=== PATIENT | male | born 1960 | race Caucasian/White ===

== ENCOUNTER 2019-07-20 18:07 | Inpatient (IN) | payer BC, SELFPAY ==
--- NOTE | ~2019-07-20 | XR_ITS ---
XR chest 2V DATE: 07/23/2019 07:52 INDICATION: Fever TECHNIQUE: 2 views COMPARISON: None FINDINGS: Normal heart size. Aortic arch calcification. No hilar or mediastinal enlargement. No pulmo nary infiltrate or consolidation, pleural effusion or pulmonary vascular congestion or pneumothorax. IMPRESSION: No active cardiopulmonary disease Reviewed, dictated and finalized at location A.
--- NOTE | ~2019-07-20 | XR_ITS ---
EXAMINATION: XR finger 2nd RT min 2V DATE: 07/25/2019 12:47 INDICATION: Swelling and open wound to the distal right second digit TECHNIQUE: Dorsal palmar, lateral and 2 oblique views of the right second digit were obtained COMPARISON: None FINDINGS: Again seen is diffuse soft tissue swelling about the right second digit. Bone alignment is normal. No fracture. No cortical erosions or periosteal reaction to suggest osteomyelitis. Polyarticular osteoa rthritis, moderate severity at the third metacarpophalangeal and second and third distal interphalang eal joints and mild at the first and second metacarpophalangeal, first interphalangeal and second and third proximal interphalangeal joints. IMPRESSION: 1. Prominent diffuse soft tissue swelling about the right second digit with no findings to suggest os teomyelitis. 2. Mild to moderate polyarticular osteoarthritis. Reviewed, dictated and finalized at location A. IMPRESSION: 1. Prominent diffuse soft tissue swelling about the right second digit with no findings to suggest osteomyelitis. 2. Mild to moderate polyarticular osteoarthritis.
--- NOTE | ~2019-07-20 | XR_ITS ---
EXAMINATION: XR finger 2nd RT min 2V EXAM DATE: 07/20/2019 19:48 INDICATION: Right second finger cat bite, pain, swelling. TECHNIQUE: Right second finger frontal, lateral and oblique projections obtained and reviewed. The re is no prior study for comparison. FINDINGS: There are no acute right finger fractures or dislocations identified. There is no subcutan eous gas. There is severe soft tissue swelling of the digit. There are no radiopaque foreign bodies . There are no bony erosions identified. IMPRESSION: 1. XR finger 2nd RT min 2V exam without acute osseous findings. 2. Soft tissue swelling. Reviewed, dictated and finalized at location A.
[2019-07-20 18:09] VITALS: BP 159/71; PULSE 87; RESP 15; TEMP 36.1; O2SAT 98
[2019-07-20 18:39] LABS: Basophils Percent Auto 0.2 % (0.2-1.2); Eosinophils Percent Auto 0.4 % (0-4.4); Hematocrit 39.2 % (42.0-52.0); Hemoglobin 13.3 g/dL (14.0-18.0); Immature Granulocyte Absolute 0.02 K/mm3 (0.00-0.031); Immature Granulocyte Percent A 0.2 % (0-0.5); Lymphocytes Percent Auto 16.3 % (18.3-44.2); Mean Corpuscular HGB Conc 33.9 g/dl (32-36); Mean Corpuscular Hemoglobin 30.6 pg (26-34); Mean Corpuscular Volume 90.3 fl (80-100); Mean Platelet Volume 9.1 fl (7.4-10.4); Monocytes Absolute Auto 0.9 K/mm3 (0.1-0.6); Monocytes Percent Auto 9.2 % (2.6-8.5); Neutrophils Absolute Auto 7.2 K/mm3 (1.3-6.7); Neutrophils Percent Auto 73.7 % (45.5-73.1); Platelet Count Result 320 k/mm3 (150-375); Red Blood Count 4.34 M/mm3 (4.6-6.20); Red Cell Distribution Width 13.2 % (11.5-14.5); White Blood Count 9.8 K/mm3 (4.5-10.0)
[2019-07-20 18:51] LABS: Alanine Aminotransferase 39 U/L (4-50); Albumin Level 4.7 g/dL (3.5-5.1); Alkaline Phosphatase 72 U/L (38-126); Aspartate Amino Transferase 26 U/L (17-59); Bilirubin,Total 0.3 mg/dL (0.2-1.3); Blood Urea Nitrogen 14 mg/dL (9-20); Calcium 9.2 mg/dL (8.4-10.2); Carbon Dioxide 24 mmol/L (22-30); Chloride 104 mmol/L (98-107); Estimated CRCL calculation 84 ml/min; Estimated Glomerular Filt Rate > 60; Glucose 117 mg/dL (75-110); Potassium 3.9 mmol/L (3.4-5.0); Sodium 137 mmol/L (137-145)
[2019-07-20 19:52] LABS: CRP 2.7 mg/dL (<1.0)
[2019-07-20 20:08] LABS: Erythrocyte Sedimentation Rate 47 mm/hr (0-20)
--- NOTE | 2019-07-20 21:32 | ED.WOUNDLAC ---
HPI - Wound/Laceration General Chief Complaint: Wound/Laceration <MAGGIE Mac Last Filed: 07/20/19 22:17> Stated Complaint: cat bite <MAGGIE Mac Last Filed: 07/20/19 22:17> Time Seen by Provider: 07/20/19 19:19 <MAGGIE Mac Last Filed: 07/20/19 22:17> Source: patient <MAGGIE Mac Last Filed: 07/20/19 22:17> Mode of arrival: ambulatory <MAGGIE Mac Last Filed: 07/20/19 22:17> Limitations: no limitations <MAGGIE Mac Last Filed: 07/20/19 22:17> History of Present Illness HPI narrative: This is a 58 year old male that presents to the ER for cat bite to right 2nd finger sustained 3 days ago. Reports his cat was at the library circulation department chief and he was holding the cat for the doctor. Reports the cat bit him. Reports since he has had increasing swelling and redness to the finger. Also reports drainage from the area. Denies fever. <MAGGIE Mac Last Filed: 07/20/19 22:17> Related Data Home Medications: Home Medications Medication Instructions Recorded Confirmed No Home Medications 07/20/19 07/20/19 <MAGGIE Mac Last Filed: 07/20/19 22:17> Allergies/Adverse Reactions: Allergies Allergy/AdvReac Type Severity Reaction Status Date / Time No Known Allergies Allergy Verified 07/20/19 18:12 <MAGGIE Mac Last Filed: 07/20/19 22:17> Review of Systems Review of Systems: Narrative: CONSTITUTIONAL: Denies fever SKIN: Reports erythema and drainage <MAGGIE Mac Last Filed: 07/20/19 22:17> All systems reviewed & are unremarkable except as noted in HPI and below <MAGGIE Mac Last Filed: 07/20/19 22:17> [facility] Past Medical History Medical History: Medical History (Updated 07/20/19 @ 22:16 by Beti Cardona PA-C) No active medical problems <Beti Cardona PA-C - Last Filed: 07/20/19 22:17> Family History Family History: Family History (Updated 07/20/19 @ 23:48 by Mary Brumfield RN) Father Esophageal cancer <Beti Cardona PA-C - Last Filed: 07/20/19 22:17> Social History Social History: Social History (Updated 07/20/19 @ 22:11 by Beti Cardona PA-C) Smoking status: Former smoker Tobacco type: cigarettes Alcohol intake: former Substance use: never Substance use type: does not use Gender identity (if verbalized by the patient): Male Spiritual care concerns: No <Beti Cardona PA-C - Last Filed: 07/20/19 22:17> Exam Narrative: Exam Narrative: GENERAL: Well-appearing, well-nourished, and in no acute distress. HEAD: Normocephalic, atraumatic. EYES: EOMI. EXTREMITIES: Normal range of motion. Moderate edema and erythema to the right 2nd finger middle and distal phalanx with spontaneous drainage from the proximal nail fold and puncture wound to the radial side of the 2nd finger over the DIP joint SKIN: Warm, dry, no rash. NEURO: No focal deficits. Alert and oriented x3. PSYCH: Normal mood and affect <Beti Cardnoa PA-C - Last Filed: 07/20/19 22:17> Course STATE TROOPER/PA Physician Supervision For this patient encounter, I reviewed the STATE TROOPER or PA documentation, treatment plan, and medical decision making; and I had [id number] time with this patient. Patient to be admitted for IV antibiotics with plastic surgery consult. <Tamiko Andrade MD - Last Filed: 07/21/19 07:13> Vital Signs Vital signs: Vital Signs Temperature 97.0 F L 07/20/19 18:09 Pulse Rate 87 07/20/19 18:09 Respiratory Rate 15 07/20/19 18:09 Blood Pressure 159/71 H 07/20/19 18:09 Pulse Oximetry 98 07/20/19 18:09 Temperature 97.3 F L 07/21/19 05:55 Pulse Rate 83 07/21/19 05:55 Respiratory Rate 16 07/21/19 05:55 Blood Pressure 124/60 07/21/19 05:55 Pulse Oximetry 96 07/21/19 05:55 <Beti Cardona PA-C - Last Filed: 07/20/19 22:17> Vital Signs Temperature 97.0 F L 07/20/19
[2019-07-20 22:38] VITALS: BP 131/70; PULSE 83; RESP 16; TEMP 36.6; O2SAT 96
[2019-07-20] MEDS: TETANUS,DIPHTHERIA,AC PERTUSSIS ADULT (0.5 ML) BOOSTRIX IM (23:19)
--- NOTE | 2019-07-20 23:41 | ADMGEN ---
This patient, Sridhar Kan, was admitted to Medical Room 253-. Patient/family oriented to hospital policies and general routines including ID bracelet, bed and alarms, visiting hours, pain management, procedures, bathroom and other care routines, personal items, smoking policy, room service/diet, and visiting hours. Valuables list has been completed. Information on how to activate the Rapid Response Team has been discussed. Patient/Family are encouraged to report perceived risks to care and to ask questions if they do not understand what they are told or what they should do.
[2019-07-21] VITALS (11 sets, daily range): BP systolic 123–147; BP diastolic 58–81; PULSE 75–98; RESP 16–22; TEMP 36.1–38.4; O2SAT 93–97; BMI 31.0
[2019-07-21] MEDS: SOD HYPOCHLORITE 1/4 STRENGTH 473 ML 1 APPLIC TOPICAL ×3 (01:41→09:17)
--- NOTE | 2019-07-21 10:25 | PM.IMHP ---
H&P: HPI History of Present Illness Chief complaint: Right Second Finger Cellulitis with Abcess Narrative: Sridhar Kan is a 58 year old male admitted with a 4-day-old cat bite to the right index finger distal phalanx. This was sustained by his own cat while visiting the date puller. He received no treatment for this until he came to the ER last night. 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 He is admitted afebrile has no leukocytosis but this finger is very swollen red tender and spontaneously draining from under the nail fold and from the bite along the ulnar side near the distal interphalangeal joint. The ER PA undertook I and D of both sites last night. He was admitted to begin IV antibiotics which are Imipenem as well as a single dose of Cefazolin.. Overall he reports that the finger is fairly stiff and swollen. He does not note significant improvement since last night. He reports a history of tobacco smoking quitting 15 months ago. He reports no history of liver lung heart kidney disease diabetes bleeding disorders or immune compromise. He does see a primary care doctor on a regular basis. Review of Systems Review of Systems: All systems reviewed & are unremarkable except as noted in HPI and below PMFSH Past Medical History Medical History No active medical problems Family History Family History (Updated 07/20/19 @ 23:48 by Mary Burmfield RN) Father Esophageal cancer Social History Social History Smoking status: Former smoker Tobacco type: cigarettes Alcohol intake: former Substance use: never Substance use type: does not use Gender identity (if verbalized by the patient): Male Spiritual care concerns: No Meds Home Medications and Allergies Home Medications Medication Instructions Recorded Confirmed Type No Home Medications 07/20/19 07/20/19 History Allergies Allergy/AdvReac Type Severity Reaction Status Date / Time No Known Allergies Allergy Verified 07/20/19 18:12 Vital Signs Vital Signs - 24 hr 07/20/19 18:09 07/20/19 22:38 07/21/19 00:08 Temperature 36.1 C L 36.6 C 36.1 C L Pulse Rate 87 83 75 Respiratory Rate 15 16 16 Blood Pressure 159/71 H 131/70 129/63 Pulse Oximetry 98 96 97 07/21/19 05:55 Temperature 36.3 C L Pulse Rate 83 Respiratory Rate 16 Blood Pressure 124/60 Pulse Oximetry 96 Exam Extrem: Other: The dorsal aspect of the distal phalanx is erythematous edematous and tender. There are 2 small wounds. One is at the nail fold. The others on the ulnar side of the distal interphalangeal joint. The latter reveals expressible pus to light pressure. The palmar side of the digit is not erythematous. He tolerates passive extension of the digit and direct pressure over the middle phalanx. All discomfort is related to the swollen area of the dorsal distal phalanx. There is no lymphangitis. H&P: Results Labs Labs: Short CBC 07/20/19 Range/Units 18:30 WBC 9.8 (4.5-10.0) K/mm3 Hgb 13.3 L (14.0-18.0) g/dL Hct 39.2 L (42.0-52.0) % Plt Count 320 (150-375) k/mm3 BMP 07/20/19 18:30 Sodium 137 Potassium 3.9 Chloride 104 Carbon Dioxide 24 BUN 14 Creatinine 0.90 Glucose 117 H Calcium 9.2 Liver Function 07/20/19 Range/Units 18:30 Total Bilirubin 0.3 (0.2-1.3) mg/dL AST 26 (17-59) U/L ALT 39 (4-50) U/L Alkaline Phosphatase 72 (38-126) U/L Albumin 4.7 (3.5-5.1) g/dL Assessment and Plan Assessment and plan (1) Cat bite: Qualifiers: Encounter type: initial encounter Qualified Code(s): W55.01XA - Bitten by cat, initial encounter Code(s): W55.01XA - Bitten by cat, initial encounter Status: Acute Assessment and Plan: Continue IV Penicillin antibiotic. (2) Abscess: Code(s): L02.91 - Cutaneous abscess, unspecified
--- NOTE | 2019-07-21 12:57 | PC.NURSE ---
1210- To OR per wheelchair.
[2019-07-21] MEDS: LIDO 1%/EPINEPHRINE 1:100,000 20 ML VIAL INFILTRATE (13:42)
--- NOTE | 2019-07-21 13:54 | PM.OP ---
Procedure Note - Brief Procedure Note - Brief Date of procedure: 07/21/19 Pre-op diagnosis: Right Second Finger Cellulitis with Abcess Procedure performed: I&D with partial ungiectomy for abscess x 2 right index finger distal phalanx. Anesthesia: local Surgeon: Saud Sykes MD Estimated blood loss (mL): 1 Tourniquet time (min): 12 Drains: No Packing: Yes Pathology: none sent Complications: No immediate complications Condition: stable Disposition: same day Findings: nail involvement.
--- NOTE | 2019-07-21 14:05 | P.OP_ITS ---
Procedure Note - Detailed Date of procedure: 07/21/19 Pre-op diagnosis: Right Second Finger Cellulitis with Abcess Post-op diagnosis: same (Right index distal phalanx cellulitis and abscess with nail involvement.) Procedure performed: I and D with partial under the actively right index finger distal phalanx Description of procedure: the finger was marked in preop. The patient was taken to the operating room and placed supine on the operating table. A time- out was held and confirmed. The digit was anesthetized with 1% lidocaine with epinephrine by intrathecal block. The extremity was prepped and draped in the usual fashion. A green tourniquet was carefully applied over the finger. Pus was noted at the nail fold and at the radial distal interphalangeal joint wound. On the radial index finger incision was lengthened considerably to reveal the abscess pocket lying superficial to the joint capsule. This was sharply debrided of nonviable tissue and irrigated copiously with bacitracin solution An incision was made through the nail fold in the midline. Pus was noted beneath the nail. Approximately 1/3 of the nail plate was removed. There was bulging edematous germinal matrix. This was incised revealing the insertion of the terminal tendon. This area was not sharply debrided foot copiously irrigated with bacitracin solution. Approximately 1-1/2 inch of quarter-inch iodoform gauze was placed in each wound. The bulky gauze bandage was applied and the tourniquet was removed. The patient is returned back to his hospital room to continue IV antibiotics. Surgeon: Saud Sykes MD
--- NOTE | 2019-07-21 14:05 | PC.NURSE ---
Return from OR per stretcher.
[2019-07-21] MEDS: AMPICILLIN SODIUM/SULBACTAM 1.5 GM in SODIUM CHLORIDE 0.9% IV 50 ML IVPB ×2 (17:12→23:43)
--- NOTE | 2019-07-21 17:57 | PHAR ---
I contacted [place] [facility] at 1740 regarding call from Saloni Milan RN that patient had ingested a sip of Dakin's solution a couple of hours ago. Alexsandra from poison control recommended monitor the patient for further vomiting or stomach pain and no other specific recommendations or antidote needed. Saloni LOZANO notified. Poison Control case #[id number].
[2019-07-22] VITALS (11 sets, daily range): BP systolic 121–160; BP diastolic 45–69; PULSE 103–107; RESP 16–20; TEMP 36.9–38.9; O2SAT 95–97
[2019-07-22] MEDS: AMPICILLIN SODIUM/SULBACTAM 1.5 GM in SODIUM CHLORIDE 0.9% IV 50 ML IVPB ×3 (05:12→17:31)
[2019-07-22] MEDS: ACETAMINOPHEN 325 MG TABLET 650 MG PO ×4 (05:12→22:08)
--- NOTE | 2019-07-22 11:31 | WPDPN ---
Progress Note: A&P Assessment and Plan (1) Cat bite: Onset Date: ~07/2019 Qualifiers: Encounter type: initial encounter Qualified Code(s): W55.01XA - Bitten by cat, initial encounter Code(s): W55.01XA - Bitten by cat, initial encounter Status: Acute Assessment and Plan: See below. (2) Abscess: Onset Date: ~07/17/19 Code(s): L02.91 - Cutaneous abscess, unspecified Status: Acute Assessment and Plan: 1 day S/P drainage of abscess and local debridements. Day 2 IV antibiotics begining with Cephazolin and Imipenem. Feels better, moves better. Looks about the same. Fever. Pus continue. Reinstitute Dakins soaks Q4H while awake. Continue Unasyn. Add Bactrim for possible MRSA. Time Spent With Patient Time with patient: 15 - 25 minutes Exam Narrative: Exam Narrative: Day 2 of Unasyn. Dressing changed. Radial wick removed, no pus. Dorsal wick is stuck onto nail bed. Nail fold is jace and tender. Scant alejandro pus expressible from middle of nail fold. ROM approx 1/2 normal without pain. No cultue has been taken. Objective Data Vital Signs Vital Signs: Vital Signs - 24 hr 07/21/19 12:29 07/21/19 13:30 07/21/19 13:40 Temperature 37.7 C H Pulse Rate 90 95 95 Respiratory Rate 18 22 H 20 Blood Pressure 140/67 147/81 H 136/65 Pulse Oximetry 97 97 94 07/21/19 13:50 07/21/19 14:00 07/21/19 17:30 Temperature 36.6 C 37.9 C H Pulse Rate 98 88 Respiratory Rate 20 16 Blood Pressure 123/65 137/58 L Pulse Oximetry 93 96 07/21/19 17:50 07/21/19 18:20 07/21/19 18:51 Temperature 38.4 C H 37.2 C 37.0 C Pulse Rate Respiratory Rate Blood Pressure Pulse Oximetry 07/22/19 04:53 07/22/19 05:03 07/22/19 05:12 Temperature 38.1 C H 38.9 C H 38.9 C H Pulse Rate 107 H Respiratory Rate 20 Blood Pressure 121/45 L Pulse Oximetry 95 07/22/19 06:08 07/22/19 09:56 07/22/19 10:56 Temperature 38.4 C H 37.9 C H 37.7 C H Pulse Rate Respiratory Rate Blood Pressure Pulse Oximetry Intake/Output Intake/Output: Intake & Output 07/19/19 07/20/19 07/21/19 07/22/19 23:59 23:59 23:59 23:59 Intake Total 200 950 410 Output Total 2000 700 Balance 200 -1050 -290 Meds/Results Medications: Active Medications Generic Name Dose Route Start Last Admin Trade Name Freq PRN Reason Stop Dose Admin Acetaminophen 650 mg 07/22/19 05:01 07/22/19 09:56 Tylenol Tablet PO 650 mg Q4H PRN Administration Fever > 100.0 Hydrocodone Bitart/Acetaminophen 1 tab 07/20/19 22:02 07/21/19 18:08 [place] 5-325 Mg PO 1 tab Q4H PRN Administration Pain Rated 4-6 Ampicillin Sodium/Sulbactam 50 mls @ 100 mls/hr 07/21/19 18:00 07/22/19 05:42 Sodium 1.5 gm/ Sodium Chloride IVPB Infused Q6HR MYRA Infusion Trimethoprim/Sulfamethoxazole 1 tab 07/22/19 21:00 Septra Ds PO Q12HR MYRA Radiology Results: ITS Impressions Finger X-Ray 07/20/19 19:49 IMPRESSION: 1. XR finger 2nd RT min 2V exam without acute osseous findings. 2. Soft tissue swelling.
[2019-07-22] MEDS: SOD HYPOCHLORITE 1/4 STRENGTH 473 ML 1 APPLIC TOPICAL ×3 (12:59→22:53)
[2019-07-22 16:54] LABS: Basophils Percent Auto 0.2 % (0.2-1.2); Hematocrit 35.3 % (42.0-52.0); Hemoglobin 12.2 g/dL (14.0-18.0); Immature Granulocyte Absolute 0.06 K/mm3 (0.00-0.031); Immature Granulocyte Percent A 0.6 % (0-0.5); Lymphocytes Absolute Auto 0.41 K/mm3 (0.9-3.2); Lymphocytes Percent Auto 4.3 % (18.3-44.2); Mean Corpuscular HGB Conc 34.6 g/dl (32-36); Mean Corpuscular Hemoglobin 30.8 pg (26-34); Mean Corpuscular Volume 89.1 fl (80-100); Monocytes Absolute Auto 0.5 K/mm3 (0.1-0.6); Monocytes Percent Auto 5.2 % (2.6-8.5); Neutrophils Absolute Auto 8.6 K/mm3 (1.3-6.7); Neutrophils Percent Auto 89.7 % (45.5-73.1); Platelet Count Result 261 k/mm3 (150-375); Red Blood Count 3.96 M/mm3 (4.6-6.20); Red Cell Distribution Width 13.1 % (11.5-14.5); White Blood Count 9.6 K/mm3 (4.5-10.0)
--- NOTE | 2019-07-22 21:09 | PM.IMCN ---
Assessment and Plan Assessment and plan (1) Abscess: Onset Date: ~07/17/19 Code(s): L02.91 - Cutaneous abscess, unspecified Status: Acute Assessment and Plan: Dr. Sykes has admitted the patient.. 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 And Bactrim. He is on Vicodin for discomfort. I would suggest infectious Disease be consulted. Patient appears to be on the right antibiotic. He still continues to have fevers. Do a chest x-ray as well just to rule out any other type of infection however his lungs sound clear. Patient has not had any cough. At this time is no reasonably that this could be covid 19. Will start with a chest x-ray for now. Wound care per Dr. Sykes. HPI Data of Consult Consult date: 07/22/19 Requesting Physician: Saud Sykes MD Primary Care Provider: Moris Strickland, DO Consult Narrative Narrative: Sridhar Kan is a 58 year old male no history of any health problems. The patient is not on any routine medications. The patient was admitted to the hospital on 07/21/2019 due to having a cat bite on his right index finger. The patient was holding his own cat at the journal clerk office when the cat bit him. The patient was taking the cat in to the office due to a infection that the CaT had his mouth. The CaT later than . The patient received no treatment and then decided to come to the emergency room after waiting for 4 days. Patient had redness and swelling to that right index finger. He was seen by Dr. Sykes. It looks like the ED provider debrided the right index finger. Patient was started on Ancef and Imipenem. The patient continues to run fevers. The temperatures are usually over 101. We have been consulted for medical management. 2.7. On the . 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 Blood cultures are pending. Date of consult is 07/22/2019. The patient tells me that he drank approximately a few swallows of Dakin solutions a couple days ago and cause some vomiting. I did call the poison Control Center to verify that this was not going to be toxic to the patient. There is nothing further to do about the patient's swallowing the Dakin solution. Review of Systems Review of Systems: Narrative: The patient is complaining of pain and discomfort to right index finger. All systems reviewed & are unremarkable except as noted in HPI and below Constitutional: Constitutional: Reports as per HPI and Reports no additional constitutional complaints Eyes: Eyes: Reports as per HPI and Reports no additional eye complaints ENT: Reports system reviewed and no additional complaints, except as documented and Reports Normal hearing present Cardiovascular: Cardiovascular: Reports no additional cardiovascular complaints Respiratory: Respiratory: Reports no additional respiratory complaints and Reports no additional respiratory complaints Gastrointestinal: Gastrointestinal: Reports as per HPI and Reports no additional gastrointestinal complaints Musculoskeletal: Musculoskeletal: Reports no additional musculoskeletal complaints Integumentary/Breasts: Skin/Breast: Reports system reviewed and no additional complaints, except as docu and Reports as per HPI Neurologic: Reports system reviewed and no additional complaints, except as documented, Reports as per HPI and Reports Normal hearing present Psychiatric: Psychiatric: Reports no additional psychiatric complaints and Reports as per HPI Endocrine: Endocrine: Reports no additional endocrine complaints Hematologic/Lymphatic: Hematologic/Lymphatic: Reports no additional hematologic/lymphatic complaints Allergic/Immunologic: Allergic/Immunologic: Reports no additional allergic/immunologic complaints [facility] Past Medical History Medical History (Updated 07/22/19 @ 11:44 by Saud Sykes MD) No active medical problems Surgical History Surgical History (Updated 07/22/19 @ 21:21 b
[2019-07-23] VITALS (10 sets, daily range): BP systolic 110–135; BP diastolic 56–83; PULSE 88–101; RESP 15–20; TEMP 36.8–37.9; O2SAT 95–97
[2019-07-23] MEDS: AMPICILLIN SODIUM/SULBACTAM 1.5 GM in SODIUM CHLORIDE 0.9% IV 50 ML IVPB ×5 (00:18→23:56)
[2019-07-23 05:43] LABS: Basophils Percent Auto 0.2 % (0.2-1.2); Hematocrit 34.5 % (42.0-52.0); Hemoglobin 11.9 g/dL (14.0-18.0); Immature Granulocyte Absolute 0.05 K/mm3 (0.00-0.031); Immature Granulocyte Percent A 0.4 % (0-0.5); Lymphocytes Absolute Auto 0.37 K/mm3 (0.9-3.2); Lymphocytes Percent Auto 3.2 % (18.3-44.2); Mean Corpuscular HGB Conc 34.5 g/dl (32-36); Mean Corpuscular Hemoglobin 30.8 pg (26-34); Mean Corpuscular Volume 89.4 fl (80-100); Mean Platelet Volume 9.1 fl (7.4-10.4); Monocytes Absolute Auto 0.7 K/mm3 (0.1-0.6); Monocytes Percent Auto 5.8 % (2.6-8.5); Neutrophils Absolute Auto 10.5 K/mm3 (1.3-6.7); Neutrophils Percent Auto 90.4 % (45.5-73.1); Platelet Count Result 250 k/mm3 (150-375); Red Blood Count 3.86 M/mm3 (4.6-6.20); Red Cell Distribution Width 13.1 % (11.5-14.5); White Blood Count 11.6 K/mm3 (4.5-10.0)
[2019-07-23 05:57] LABS: Lactic Acid 0.6 mmol/L (0.7-2.1)
[2019-07-23 06:10] LABS: Alanine Aminotransferase 52 U/L (4-50); Alkaline Phosphatase 75 U/L (38-126); Aspartate Amino Transferase 46 U/L (17-59); Bilirubin,Total 0.1 mg/dL (0.2-1.3); Blood Urea Nitrogen 13 mg/dL (9-20); CRP 12.1 mg/dL (<1.0); Calcium 8.3 mg/dL (8.4-10.2); Carbon Dioxide 26 mmol/L (22-30); Chloride 99 mmol/L (98-107); Estimated CRCL calculation 93 ml/min; Estimated Glomerular Filt Rate > 60; Glucose 139 mg/dL (75-110); Magnesium 1.9 mg/dL (1.6-2.3); Potassium 3.8 mmol/L (3.4-5.0); Sodium 134 mmol/L (137-145)
[2019-07-23] MEDS: SOD HYPOCHLORITE 1/4 STRENGTH 473 ML 1 APPLIC TOPICAL ×2 (06:38→11:43)
[2019-07-23 07:10] LABS: Thyroid Stimulating Hormone Reflex 0.132 uIU/mL (0.465-4.68)
[2019-07-23] MEDS: PANTOPRAZOLE SOD SESQUIHYDRATE 20 MG TAB PO (08:21)
[2019-07-23 10:35] LABS: Free T4 Free Thyroxine Reflex 1.39 ng/dL (0.78-2.19)
--- NOTE | 2019-07-23 12:32 | WPDPN ---
Progress Note: A&P Additional Plan Infected site still concerning. Continue IV Unasyn. D/C Bactrim. Continue Dakin's soaks. Monitor CXR. Strongly considering returning to OR for serial washout. Local anesthetic. Time Spent With Patient Time with patient: less than 15 minutes Exam Narrative: Exam Narrative: POD 2. Still running low grade fever. Normal at last check. WBC 11.4. CXR and blood cultures pending. Dorsal distal phalanx remains jace and tender at nail fold. Some improvement. Still draining small pus. Objective Data Vital Signs Vital Signs: Vital Signs - 24 hr 07/22/19 14:00 07/22/19 14:27 07/22/19 15:28 Temperature 38.1 C H 38.1 C H 36.9 C Pulse Rate 105 H Respiratory Rate 16 Blood Pressure 160/66 H Pulse Oximetry 97 07/22/19 22:04 07/22/19 22:08 07/23/19 09:31 Temperature 38.3 C H 38.3 C H 37.3 C Pulse Rate 103 H 101 H Respiratory Rate 20 20 Blood Pressure 137/69 121/62 Pulse Oximetry 95 97 Intake/Output Intake/Output: Intake & Output 07/20/19 07/21/19 07/22/19 07/23/19 23:59 23:59 23:59 23:59 Intake Total 950 471 1395 2040 Output Total 1999 1525 750 Balance 200 -0444 828 6017 Meds/Results Medications: Active Medications Generic Name Dose Route Start Last Admin Trade Name Freq PRN Reason Stop Dose Admin Acetaminophen 650 mg 07/22/19 05:01 07/22/19 22:08 Tylenol Tablet PO 650 mg Q4H PRN Administration Fever > 100.0 Hydrocodone Bitart/Acetaminophen 1 tab 07/20/19 22:02 07/21/19 18:08 [place] 5-325 Mg PO 1 tab Q4H PRN Administration Pain Rated 4-6 Ampicillin Sodium/Sulbactam 50 mls @ 100 mls/hr 07/21/19 18:00 07/23/19 11:40 Sodium 1.5 gm/ Sodium Chloride IVPB 100 mls/hr Q6HR MYRA Administration Pantoprazole Sodium 20 mg 07/23/19 09:00 07/23/19 08:21 Protonix PO 20 mg QAM MYRA Administration Sodium Hypochlorite 1 applic 07/22/19 13:00 07/23/19 11:43 Dakin's Quarter Strength TOPICAL 1 applic Q4HWA MYRA Administration Trimethoprim/Sulfamethoxazole 1 tab 07/22/19 21:00 07/23/19 08:21 Septra Ds PO 1 tab Q12HR MYRA Administration Radiology Results: ITS Impressions Finger X-Ray 07/20/19 19:49 IMPRESSION: 1. XR finger 2nd RT min 2V exam without acute osseous findings. 2. Soft tissue swelling. Chest X-Ray 07/23/19 07:59 IMPRESSION: No active cardiopulmonary disease Labs Labs: Laboratory Results - last 24 hr 07/22/19 07/23/19 07/23/19 16:48 05:27 05:27 WBC 9.6 11.6 H RBC 3.96 L 3.86 L Hgb 12.2 L 11.9 L Hct 35.3 L 34.5 L MCV 89.1 89.4 MCH 30.8 30.8 MCHC 34.6 34.5 RDW 13.1 13.1 Plt Count 261 250 MPV 9.0 9.1 Immature Gran % (Auto) 0.6 H 0.4 Neut % (Auto) 89.7 H 90.4 H Lymph % (Auto) 4.3 L 3.2 L Woods % (Auto) 5.2 5.8 Eos % (Auto) 0.0 0.0 Baso % (Auto) 0.2 0.2 Lymph # (Auto) 0.41 L 0.37 L [place] # (Auto) 0.5 0.7 H Eos # (Auto) 0.0 0.0 Baso # (Auto) 0.0 0.0 Abs Immat Gran (auto) 0.06 H 0.05 H Absolute Neuts (auto) 8.6 H 10.5 H Absolute Nucleated RBC 0.0 0.0 Nucleated RBC % 0.0 0.0 Sodium Potassium Chloride Carbon Dioxide BUN Creatinine Estim Creat Clear Calc Estimated GFR Glucose Lactic Acid 0.6 L Calcium Magnesium Total Bilirubin AST ALT Alkaline Phosphatase C-Reactive Protein Total Protein Albumin TSH (Reflex) Free T4 07/23/19 07/23/19 07/23/19 05:27 05:27 05:27 WBC RBC Hgb Hct MCV MCH MCHC RDW Plt Count MPV Immature Gran % (Auto) Neut % (Auto) Lymph % (Auto) Woods % (Auto) Eos % (Auto) Baso % (Auto) Lymph # (Auto) Woods # (Auto) Eos # (Auto) Baso # (Auto) Abs Immat Gran (auto) Absolute Neuts (auto) Absolute Nucleated RBC Nucleated RBC % Sodium 134 L Potassium 3.8 Chloride 99 Carbon Dioxide 2
--- NOTE | 2019-07-23 14:06 | WPDINFPN2 ---
Progress Note: A&P Assessment and Plan (1) Abscess: Onset Date: ~07/17/19 Code(s): L02.91 - Cutaneous abscess, unspecified Status: Acute Assessment and Plan: Cat bite cellulitis and abscess REC Amp Sulb #3, will f/u and advise on length of therapy Subjective Date/time seen: 07/23/19 14:06 Objective Data Vital Signs Vital Signs: Vital Signs - 24 hr 07/22/19 14:27 07/22/19 15:28 07/22/19 22:04 Temperature 38.1 C H 36.9 C 38.3 C H Pulse Rate 103 H Respiratory Rate 20 Blood Pressure 137/69 Pulse Oximetry 95 07/22/19 22:08 07/23/19 09:31 07/23/19 13:38 Temperature 38.3 C H 37.3 C 37.9 C H Pulse Rate 101 H 98 Respiratory Rate 20 18 Blood Pressure 121/62 127/56 L Pulse Oximetry 97 96 Intake/Output Intake/Output: Intake & Output 07/20/19 07/21/19 07/22/19 07/23/19 23:59 23:59 23:59 23:59 Intake Total 402 522 5822 2089 Output Total 1999 1525 750 Balance 200 -2657 034 9247 Meds/Results Medications: Active Medications Generic Name Dose Route Start Last Admin Trade Name Freq PRN Reason Stop Dose Admin Acetaminophen 650 mg 07/22/19 05:01 07/22/19 22:08 Tylenol Tablet PO 650 mg Q4H PRN Administration Fever > 100.0 Hydrocodone Bitart/Acetaminophen 1 tab 07/20/19 22:02 07/21/19 18:08 [place] 5-325 Mg PO 1 tab Q4H PRN Administration Pain Rated 4-6 Ampicillin Sodium/Sulbactam 50 mls @ 100 mls/hr 07/21/19 18:00 07/23/19 12:10 Sodium 1.5 gm/ Sodium Chloride IVPB Infused Q6HR MYRA Infusion Pantoprazole Sodium 20 mg 07/23/19 09:00 07/23/19 08:21 Protonix PO 20 mg QAM MYRA Administration Sodium Hypochlorite 1 applic 07/22/19 13:00 07/23/19 11:43 Dakin's Quarter Strength TOPICAL 1 applic Q4HWA MYRA Administration Radiology Results: ITS Impressions Finger X-Ray 07/20/19 19:49 IMPRESSION: 1. XR finger 2nd RT min 2V exam without acute osseous findings. 2. Soft tissue swelling. Chest X-Ray 07/23/19 07:59 IMPRESSION: No active cardiopulmonary disease Labs Labs: Laboratory Results - last 24 hr 07/22/19 07/23/19 07/23/19 16:48 05:27 05:27 WBC 9.6 11.6 H RBC 3.96 L 3.86 L Hgb 12.2 L 11.9 L Hct 35.3 L 34.5 L MCV 89.1 89.4 MCH 30.8 30.8 MCHC 34.6 34.5 RDW 13.1 13.1 Plt Count 261 250 MPV 9.0 9.1 Immature Gran % (Auto) 0.6 H 0.4 Neut % (Auto) 89.7 H 90.4 H Lymph % (Auto) 4.3 L 3.2 L [place] % (Auto) 5.2 5.8 Eos % (Auto) 0.0 0.0 Baso % (Auto) 0.2 0.2 Lymph # (Auto) 0.41 L 0.37 L [place] # (Auto) 0.5 0.7 H Eos # (Auto) 0.0 0.0 Baso # (Auto) 0.0 0.0 Abs Immat Gran (auto) 0.06 H 0.05 H Absolute Neuts (auto) 8.6 H 10.5 H Absolute Nucleated RBC 0.0 0.0 Nucleated RBC % 0.0 0.0 Sodium Potassium Chloride Carbon Dioxide BUN Creatinine Estim Creat Clear Calc Estimated GFR Glucose Lactic Acid 0.6 L Calcium Magnesium Total Bilirubin AST ALT Alkaline Phosphatase C-Reactive Protein Total Protein Albumin TSH (Reflex) Free T4 07/23/19 07/23/19 07/23/19 05:27 05:27 05:27 WBC RBC Hgb Hct MCV MCH MCHC RDW Plt Count MPV Immature Gran % (Auto) Neut % (Auto) Lymph % (Auto) [place] % (Auto) Eos % (Auto) Baso % (Auto) Lymph # (Auto) [place] # (Auto) Eos # (Auto) Baso # (Auto) Abs Immat Gran (auto) Absolute Neuts (auto) Absolute Nucleated RBC Nucleated RBC % Sodium 134 L Potassium 3.8 Chloride 99 Carbon Dioxide 26 BUN 13 Creatinine 0.90 Estim Creat Clear Calc 93 Estimated GFR > 60 Glucose 139 H Lactic Acid Calcium 8.3 L Magnesium 1.9 Total Bilirubin 0.1 L AST 46 ALT 52 H Alkaline Phosphatase 75 C-Reactive Protein 12.1 H Total Protein 7.0 Albumin 4.0 TSH (Reflex) 0.132 L Free T4 1.39
[2019-07-23] MEDS: LIDO 1%/EPINEPHRINE 1:100,000 20 ML VIAL INFILTRATE (14:40)
--- NOTE | 2019-07-23 14:42 | SUR.OPER ---
LARGE TOURNI-COT APPLIED BY DR. KITCHEN AT 14:38.
[2019-07-23] MEDS: BACITRACIN OINTMENT 15 GM TUBE 1 APPLIC TOPICAL (14:44)
--- NOTE | 2019-07-23 14:44 | SUR.OPER ---
RIGHT UPPER ARM IV REMOVED BY DR. PEARL JIMENEZ IN O.R. #8. SITE WAS REDDENED, WARM TO TOUCH, AND STREAKING. DR. JIMENEZ PLACED A NEW 20 GAUGE IV IN THE LEFT HAND WITH GOOD BLOOD RETURN AND FLUSHED EASILY. IV IS SALINE LOCKED.
--- NOTE | 2019-07-23 14:52 | SUR.OPER ---
RADHA ASHTON REMOVED AT 14:[address] KITCHEN.
--- NOTE | 2019-07-23 15:04 | PM.OP ---
Procedure Note - Brief Procedure Note - Brief Date of procedure: 07/23/19 Pre-op diagnosis: Right Second Finger Cellulitis with Abcess Post-op diagnosis: same Procedure performed: 2nd serial washout and debridement of cat bite abscess of left index finger. Implants: Iodoform gauze Anesthesia: local Surgeon: Saud Sykes MD Estimated blood loss (mL): 1 Tourniquet time (min): 10 Drains: No Packing: Yes Pathology: none sent Complications: No immediate complications Condition: stable Disposition: floor Findings: Small pus at nail fold.
--- NOTE | 2019-07-23 15:06 | PM.PROC ---
Procedure Note - Detailed Date of procedure: 07/23/19 Pre-op diagnosis: Right Second Finger Cellulitis with Abcess Post-op diagnosis: same Procedure performed: 2nd serial I&D of cat bite abscess of distal phalanx of left index finger. Description of procedure: The infected finger was marked while patient was in the holding area. He was taken to the operating room and placed supine on the operating table. A time-out was held and confirmed. The extremity was prepped and draped in usual fashion. The IV site on the right antecubital region was noted to be reddened and was discontinued a new IV was started on the left upper extremity. The infected digit was anesthetized with 1% lidocaine with epinephrine. The 2 previously draining sites were opened and debrided and washed out. Debridement was essentially with Ray-Ann sponge and a small curette. A small amount of pus was identified at the nail fold site. The dorsal cortex of the distal phalanx is visible and area approximately 5 x 5 mm. There appeared to be no softening or erosions into that bone. Both wound areas were irrigated copiously with bacitracin solution. Small strips of quarter-inch iodoform gauze were placed in each wound. The wounds were also dressed with bacitracin ointment. A soft gauze wrap was applied and the digital tourniquet was removed. He is discharged back to his hospital room. Surgeon: Saud Sykes MD
--- NOTE | 2019-07-23 15:12 | PC.NURSE ---
Patient returned from OR, dressing to right finger is in place, will continue to monitor.
--- NOTE | 2019-07-23 15:15 | PM.IMPN ---
Progress Note: A&P Assessment and Plan (1) Abscess: Onset Date: ~07/17/19 Code(s): L02.91 - Cutaneous abscess, unspecified Status: Acute Assessment and Plan: Patient with a cat bite on right index finger distal follow, seen by plastic surgeon, treated with ampicillin, Has had fever. Which is now trending Finger only tender to pressure over nail fold. ROM improved. Will continue to monitor patient is seen by Dr. Dr. Piedra, recommended to continue current management and further recommendation to follow Subjective Date/time seen: 07/23/19 15:15 Interval history: Patient with a cat bite on right index finger distal follow, seen by plastic surgeon, treated with ampicillin, Has had fever. Which is now trending Finger only tender to pressure over nail fold. ROM improved. Review of Systems Review of Systems: All systems reviewed & are unremarkable except as noted in HPI and below Exam Const: General: comfortable and no acute distress HENMT: General nose exam: Normal nares present Mouth: Yes moist mucous membranes Eyes: General: appearance normal, both eyes and all related structures Sclera: sclerae normal Neck: Neck: supple Resp: Effort & Inspection: normal respiratory effort Auscultation: clear to auscultation bilaterally Cardio: Rate: regular rate Rhythm: regular rhythm GI: Auscultation: normal bowel sounds Skin: Other: Right index finger with wound dressing Neuro: Speech: normal speech Sensory Exam: normal sensation Extrem: Other: Right index finger distal phalanx with wound dressing patient is able to flex and extend at DIP Psych: Affect: Anxious affect present Objective Data Vital Signs Vital Signs: Vital Signs - 24 hr 07/22/19 15:28 07/22/19 22:04 07/22/19 22:08 Temperature 98.5 F 101.0 F H 101 F H Pulse Rate 103 H Respiratory Rate 20 Blood Pressure 137/69 Pulse Oximetry 95 07/23/19 09:31 07/23/19 13:38 07/23/19 14:20 Temperature 99.1 F 100.2 F H Pulse Rate 101 H 98 92 Respiratory Rate 20 18 16 Blood Pressure 121/62 127/56 L 127/62 Pulse Oximetry 97 96 96 07/23/19 14:30 07/23/19 14:40 07/23/19 14:50 Temperature Pulse Rate 90 88 90 Respiratory Rate 16 16 15 Blood Pressure 135/70 127/62 133/62 Pulse Oximetry 96 96 95 Intake/Output Intake/Output: Intake & Output 07/20/19 07/21/19 07/22/19 07/23/19 23:59 23:59 23:59 23:59 Intake Total 378 937 7018 2089 Output Total 1999 1525 750 Balance 200 -1558 725 8341 Meds/Results Medications: Active Medications Generic Name Dose Route Start Last Admin Trade Name Freq PRN Reason Stop Dose Admin Acetaminophen 650 mg 07/22/19 05:01 07/22/19 22:08 Tylenol Tablet PO 650 mg Q4H PRN Administration Fever > 100.0 Hydrocodone Bitart/Acetaminophen 1 tab 07/20/19 22:02 07/21/19 18:08 [place] 5-325 Mg PO 1 tab Q4H PRN Administration Pain Rated 4-6 Ampicillin Sodium/Sulbactam 50 mls @ 100 mls/hr 07/21/19 18:00 07/23/19 12:10 Sodium 1.5 gm/ Sodium Chloride IVPB Infused Q6HR MYRA Infusion Pantoprazole Sodium 20 mg 07/23/19 09:00 07/23/19 08:21 Protonix PO 20 mg QAM MYRA Administration Sodium Hypochlorite 1 applic 07/22/19 13:00 07/23/19 11:43 Dakin's Quarter Strength TOPICAL 1 applic Q4HWA MYRA Administration Radiology Results: ITS Impressions Finger X-Ray 07/20/19 19:49 IMPRESSION: 1. XR finger 2nd RT min 2V exam without acute osseous findings. 2. Soft tissue swelling. Chest X-Ray 07/23/19 07:59 IMPRESSION: No active cardiopulmonary disease Labs Labs: Laboratory Results - last 24 hr 07/22/19 07/23/19 07/23/19 16:48 05:27 05:27 WBC 9.6 11.6 H RBC 3.96 L 3.86 L Hgb 12.2 L 11.9 L Hct 35.3 L 34.5 L MCV 89.1 89.4 MCH 30.8 30.8 MCHC 34.6 34.5 RDW 13.1 13.1 Plt Count 261 250 MPV 9.0 9.1 Immature Gran % (Auto) 0.6 H 0.4 Neut % (Auto) 89.7 H 90.4 H Lymph % (A
[2019-07-23 15:23] LABS: Total Triiodothyronine (T3) 0.86 NG/ML (0.97-1.69)
--- NOTE | 2019-07-23 17:19 | CONS_ITS ---
DATE OF CONSULTATION: 07/23/2019 REASON FOR CONSULTATION: Cellulitis after cat bite. HISTORY OF PRESENT ILLNESS: The patient is a 58-year-old male without past medical history. He was in his usual state of health until 3 days before admission when he took his cat to the shell press operator due to concern over oral infection. The CT then bit the patient on the right index finger, he applied first-aid, but over the next several days had increasing swelling, drainage from the nail and pain. He was taken to the operating room on the day of admission and he underwent incision and drainage with partial ungiectomy, distal phalanx right index finger. He has been on ampicillin-sulbactam since admission and consultation requested. He has had no previous injuries. He knows of no other trauma. No operations in the past to the hand and he has no prosthetic material anywhere else. He had no fever, chills or sweats. ALLERGIES: NONE KNOWN. PRESENT MEDICATIONS: List reviewed. No immunosuppressants. HABITS: No tobacco. PAST MEDICAL HISTORY: No chronic illnesses. Previous appendectomy and Lasix surgery. FAMILY HISTORY: Not pertinent to his present illness. 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 REVIEW OF SYSTEMS: Skin, musculoskeletal, constitutional, respiratory, GI otherwise negative. PHYSICAL EXAMINATION: GENERAL: This is a middle age male who appears his actual age. No acute distress. VITAL SIGNS: T-max on the evening of admission 38.4 and yesterday T-max of 38.9, currently 37.9; pulse 98, respirations 18, 127/56. SKIN: Warm and dry. EENT: The conjunctivae are normal. Pupils equal, round, and reactive to light. The oropharynx and oral mucosa normal. NECK: No meningismus. No masses. LUNGS: Clear to auscultation and percussion. CARDIAC: Regular rate and rhythm. No murmurs or gallops. ABDOMEN: Nondistended and soft. EXTREMITIES: Feet have no clubbing, cyanosis, edema. He has a dressing over the right index finger. There is no proximal erythema. He has moderate edema of the entire index finger. He has no proximal streaking, tenderness, abnormal contour, crepitus, epitrochlear nor axillary adenopathy. LABORATORY DATA: White count 11.6, hemoglobin 11.9, platelets are 250. Differential is normal. He has minimal hyponatremia, glucose 139, up from 117. Transaminases with ALT 52, normal AST. CRP is 12.1, up from 2.7. TSH is low. Wound culture from the operating room, Pasteurella multocida as well as other skin luyc. Blood cultures not done until the and no growth after a very short incubation. RADIOLOGY DATA: Finger x-ray showed soft tissue swelling. ASSESSMENT: 1. Cat bite injury with cellulitis and subcutaneous abscess of the index finger, right side, now postop day #2 operative intervention. This is an uncomplicated infection other than the depth of the infection, likely to the bone. Initial x-ray showed no osseous abnormalities ever. His CRP remains high. 2. Fever and leukocytosis because of the above, other causes unlikely. RECOMMENDATIONS: 1. Continue ampicillin-sulbactam. 2. We will follow up and advise on length of IV therapy, may need to be several weeks time. 3. Dr. Sykes also following. Thank you very much for asking me to see him. FLOWER CORONEL M.D. ADMINISTRATIVE ACCOUNTANT ADMINISTRATIVE ACCOUNTANT D I MT: Daljit
[2019-07-24] MEDS: AMPICILLIN SODIUM/SULBACTAM 1.5 GM in SODIUM CHLORIDE 0.9% IV 50 ML IVPB ×4 (06:00→23:26)
[2019-07-24 06:01] LABS: Basophils Percent Auto 0.4 % (0.2-1.2); Hematocrit 35.1 % (42.0-52.0); Hemoglobin 11.9 g/dL (14.0-18.0); Immature Granulocyte Absolute 0.03 K/mm3 (0.00-0.031); Immature Granulocyte Percent A 0.4 % (0-0.5); Lymphocytes Absolute Auto 1.02 K/mm3 (0.9-3.2); Lymphocytes Percent Auto 13.4 % (18.3-44.2); Mean Corpuscular HGB Conc 33.9 g/dl (32-36); Mean Corpuscular Hemoglobin 30.5 pg (26-34); Monocytes Absolute Auto 0.6 K/mm3 (0.1-0.6); Neutrophils Absolute Auto 5.9 K/mm3 (1.3-6.7); Neutrophils Percent Auto 77.8 % (45.5-73.1); Platelet Count Result 225 k/mm3 (150-375); Red Cell Distribution Width 13.3 % (11.5-14.5); White Blood Count 7.6 K/mm3 (4.5-10.0)
[2019-07-24 06:30] LABS: Blood Urea Nitrogen 14 mg/dL (9-20); Calcium 8.3 mg/dL (8.4-10.2); Carbon Dioxide 29 mmol/L (22-30); Chloride 98 mmol/L (98-107); Estimated CRCL calculation 84 ml/min; Estimated Glomerular Filt Rate > 60; Glucose 118 mg/dL (75-110); Potassium 3.9 mmol/L (3.4-5.0); Sodium 133 mmol/L (137-145)
[2019-07-24] MEDS: SODIUM CHLORIDE 500 MG TABLET PO (09:09)
[2019-07-24] MEDS: PANTOPRAZOLE SOD SESQUIHYDRATE 20 MG TAB PO (09:10)
[2019-07-24 09:37] VITALS: BP 119/62; PULSE 78; RESP 18; TEMP 36.5; O2SAT 97
--- NOTE | 2019-07-24 12:28 | WPDPN ---
Progress Note: A&P Additional Plan Continue Unasyn. May shower, finger may get wet. Need to maintain eugene at least until tomorrow. Do not anticipate need to return again to surgery. Defer to Dr Piedra re: home antibiotics and discharge date. Could go home tomorrow from my standpoint. Thanks to hospitalist and Dr Piedra for assistance. Exam Narrative: Exam Narrative: Sitting up eating a hamburger. WBC normal. Temp trending back to normal. Normal at present. Right UE less red and swollen than yesterday. Right index finger still quite jace at dorsal distal phalanx. Much less tender. Eugene in place. No expressible pus. Nail bed healing as expected. Tiny white epidermal pustules in the area. Some drained yesterday in OR. Not related to deeper pus or gangrene. Objective Data Vital Signs Vital Signs: Vital Signs - 24 hr 07/23/19 13:38 07/23/19 14:20 07/23/19 14:30 Temperature 37.9 C H Pulse Rate 98 92 90 Respiratory Rate 18 16 16 Blood Pressure 127/56 L 127/62 135/70 Pulse Oximetry 96 96 96 07/23/19 14:40 07/23/19 14:50 07/23/19 15:20 Temperature 36.8 C Pulse Rate 88 90 90 Respiratory Rate 16 15 18 Blood Pressure 127/62 133/62 110/83 Pulse Oximetry 96 95 96 07/23/19 21:03 07/23/19 22:02 07/23/19 22:06 Temperature 37.8 C H 37.3 C Pulse Rate 89 Respiratory Rate 20 Blood Pressure 119/57 L Pulse Oximetry 96 07/24/19 09:37 Temperature 36.5 C Pulse Rate 78 Respiratory Rate 18 Blood Pressure 119/62 Pulse Oximetry 97 Intake/Output Intake/Output: Intake & Output 07/21/19 07/22/19 07/23/19 07/24/19 23:59 23:59 23:59 23:59 Intake Total 2019 3350 1210 Output Total 1999 152 1150 400 Balance -4435 460 8761 810 Meds/Results Medications: Active Medications Generic Name Dose Route Start Last Admin Trade Name Freq PRN Reason Stop Dose Admin Acetaminophen 650 mg 07/22/19 05:01 07/22/19 22:08 Tylenol Tablet PO 650 mg Q4H PRN Administration Fever > 100.0 Hydrocodone Bitart/Acetaminophen 1 tab 07/20/19 22:02 07/24/19 10:17 [place] 5-325 Mg PO 1 tab Q4H PRN Administration Pain Rated 4-6 Ampicillin Sodium/Sulbactam 50 mls @ 100 mls/hr 07/21/19 18:00 07/24/19 11:39 Sodium 1.5 gm/ Sodium Chloride IVPB 100 mls/hr Q6HR MYRA Administration Pantoprazole Sodium 20 mg 07/23/19 09:00 07/24/19 09:10 Protonix PO 20 mg QAM MYRA Administration Sodium Chloride 500 mg 07/24/19 09:00 07/24/19 09:09 Sodium Chloride PO 500 mg QAM MYRA Administration Sodium Hypochlorite 1 applic 07/22/19 13:00 07/23/19 11:43 Dakin's Quarter Strength TOPICAL 1 applic Q4HWA MYRA Administration Radiology Results: ITS Impressions Finger X-Ray 07/20/19 19:49 IMPRESSION: 1. XR finger 2nd RT min 2V exam without acute osseous findings. 2. Soft tissue swelling. Chest X-Ray 07/23/19 07:59 IMPRESSION: No active cardiopulmonary disease Labs Labs: Laboratory Results - last 24 hr 07/23/19 07/24/19 07/24/19 05:27 05:37 05:37 WBC 7.6 RBC 3.90 L Hgb 11.9 L Hct 35.1 L MCV 90.0 MCH 30.5 MCHC 33.9 RDW 13.3 Plt Count 225 MPV 9.0 Immature Gran % (Auto) 0.4 Neut % (Auto) 77.8 H Lymph % (Auto) 13.4 L [place] % (Auto) 8.0 Eos % (Auto) 0.0 Baso % (Auto) 0.4 Lymph # (Auto) 1.02 [place] # (Auto) 0.6 Eos # (Auto) 0.0 Baso # (Auto) 0.0 Abs Immat Gran (auto) 0.03 Absolute Neuts (auto) 5.9 Absolute Nucleated RBC 0.0 Nucleated RBC % 0.0 Sodium 133 L Potassium 3.9 Chloride 98 Carbon Dioxide 29 BUN 14 Creatinine 1.00 Estim Creat Clear Calc 84 Estimated GFR > 60 Glucose 118 H Calcium 8.3 L Total T3 0.86 L Quality VTE Prophylaxis VTE prophylaxis: mechanical ordered
--- NOTE | 2019-07-24 13:10 | PM.IMPN ---
Progress Note: A&P Assessment and Plan (1) Abscess: Onset Date: ~07/17/19 Code(s): L02.91 - Cutaneous abscess, unspecified Status: Acute Assessment and Plan: 07/24/19 13:10 Patient with a cat bite on right index finger distal follow, seen by plastic surgeon, treated with ampicillin, Has had fever. Which is now trending Finger only tender to pressure over nail fold. ROM improved. Will continue to monitor patient is seen by Dr. Dr. Piedra, recommended to continue current management and further recommendation to follow, today patient is seen by Dr. Unger recommended to monitor 1 more day and follow Dr. Piedra recommendation for how long IV abx. patient is clinically stable denies any fever or chills Subjective Date/time seen: 07/24/19 13:10 Patient with a cat bite on right index finger distal follow, seen by plastic surgeon, treated with ampicillin, Has had fever. Which is now trending Finger only tender to pressure over nail fold. ROM improved. Will continue to monitor patient is seen by Dr. Dr. Piedra, recommended to continue current management and further recommendation to follow, today patient is seen by Dr. Unger recommended to monitor 1 more day and follow Dr. Piedra recommendation for how long IV abx. patient is clinically stable denies any fever or chills Review of Systems Review of Systems: All systems reviewed & are unremarkable except as noted in HPI and below Exam Const: General: no acute distress and uncomfortable HENMT: General nose exam: Normal nares present Eyes: Sclera: sclerae normal Neck: Neck: supple Resp: Effort & Inspection: normal respiratory effort Auscultation: clear to auscultation bilaterally Cardio: Rate: regular rate Rhythm: regular rhythm GI: Auscultation: normal bowel sounds Skin: Other: Right index finger with wound dressing, Neuro: Speech: normal speech Sensory Exam: normal sensation Extrem: Other: right index finger patient wound adressing in anatomcal position Psych: Affect: Anxious affect present Objective Data Vital Signs Vital Signs: Vital Signs - 24 hr 07/23/19 13:38 07/23/19 14:20 07/23/19 14:30 Temperature 100.2 F H Pulse Rate 98 92 90 Respiratory Rate 18 16 16 Blood Pressure 127/56 L 127/62 135/70 Pulse Oximetry 96 96 96 07/23/19 14:40 07/23/19 14:50 07/23/19 15:20 Temperature 98.2 F Pulse Rate 88 90 90 Respiratory Rate 16 15 18 Blood Pressure 127/62 133/62 110/83 Pulse Oximetry 96 95 96 07/23/19 21:03 07/23/19 22:02 07/23/19 22:06 Temperature 100.1 F H 99.1 F Pulse Rate 89 Respiratory Rate 20 Blood Pressure 119/57 L Pulse Oximetry 96 07/24/19 09:37 Temperature 97.7 F Pulse Rate 78 Respiratory Rate 18 Blood Pressure 119/62 Pulse Oximetry 97 Intake/Output Intake/Output: Intake & Output 07/21/19 07/22/19 07/23/19 07/24/19 23:59 23:59 23:59 23:59 Intake Total 950 2019 3350 1210 Output Total 1999 1525 1150 400 Balance -3119 290 4629 810 Meds/Results Medications: Active Medications Generic Name Dose Route Start Last Admin Trade Name Freq PRN Reason Stop Dose Admin Acetaminophen 650 mg 07/22/19 05:01 07/22/19 22:08 Tylenol Tablet PO 650 mg Q4H PRN Administration Fever > 100.0 Hydrocodone Bitart/Acetaminophen 1 tab 07/20/19 22:02 07/24/19 10:17 [place] 5-325 Mg PO 1 tab Q4H PRN Administration Pain Rated 4-6 Ampicillin Sodium/Sulbactam 50 mls @ 100 mls/hr 07/21/19 18:00 07/24/19 11:39 Sodium 1.5 gm/ Sodium Chloride IVPB 100 mls/hr Q6HR MYRA Administration Pantoprazole Sodium 20 mg 07/23/19 09:00 07/24/19 09:10 Protonix PO 20 mg QAM MYRA Administration Sodium Chloride 500 mg 07/24/19 09:00 07/24/19 09:09 Sodium Chloride PO 500 mg QAM MYRA Administration Sodium Hypochlorite 1 applic 07/22/19 13:00 07/23/19 11:43 Dakin's Quarter Strength TOPICAL 1 applic Q4HWA MYRA Administration Radiology Results: I
[2019-07-24 13:38] VITALS: BP 144/67; PULSE 78; RESP 18; TEMP 37.6; O2SAT 97
--- NOTE | 2019-07-24 14:15 | WPDANESPN ---
Anes - Prog Note Post-Op Date/Time: 07/24/19 14:15 Cardiovascular status: normal Respiratory status: normal Airway patency: baseline Mental status: baseline Post-Op hydration status: normal Vital Signs: Last Vital Signs Temp 37.6 C 07/24/19 13:38 Pulse 78 07/24/19 13:38 Resp 18 07/24/19 13:38 BP 144/67 H 07/24/19 13:38 Pulse Ox 97 07/24/19 13:38 I/O: Intake & Output 07/23/19 07/24/19 07/24/19 23:59 07:59 15:59 Intake Total 1260 490 770 Output Total 400 400 Balance 860 90 770 Laboratory Tests 07/24/19 05:37 07/24/19 05:37 07/23/19 07/24/19 07/24/19 05:27 05:37 05:37 WBC 7.6 RBC 3.90 L Hgb 11.9 L Hct 35.1 L MCV 90.0 MCH 30.5 MCHC 33.9 RDW 13.3 Plt Count 225 MPV 9.0 Immature Gran % (Auto) 0.4 Neut % (Auto) 77.8 H Lymph % (Auto) 13.4 L [place] % (Auto) 8.0 Eos % (Auto) 0.0 Baso % (Auto) 0.4 Lymph # (Auto) 1.02 [place] # (Auto) 0.6 Eos # (Auto) 0.0 Baso # (Auto) 0.0 Abs Immat Gran (auto) 0.03 Absolute Neuts (auto) 5.9 Absolute Nucleated RBC 0.0 Nucleated RBC % 0.0 Sodium 133 L Potassium 3.9 Chloride 98 Carbon Dioxide 29 BUN 14 Creatinine 1.00 Estim Creat Clear Calc 84 Estimated GFR > 60 Glucose 118 H Calcium 8.3 L Total T3 0.86 L Microbiology 07/22/19 16:23 Blood Blood Culture - Preliminary 07/22/19 16:49 Blood Blood Culture - Preliminary 07/20/19 21:28 Abscess Wound Culture - Final Pasteurella multocida Post-procedural complaints: none Patient Feedback: Patient satisfied with anesthetic care.
[2019-07-24 17:37] VITALS: BP 134/64; PULSE 95; RESP 18; TEMP 37.6; O2SAT 95
[2019-07-24 22:00] VITALS: BP 124/56; PULSE 86; RESP 16; TEMP 37.6; O2SAT 97
[2019-07-25] VITALS (9 sets, daily range): BP systolic 111–144; BP diastolic 53–73; PULSE 70–78; RESP 14–20; TEMP 36.8–37; O2SAT 95–98
[2019-07-25] MEDS: AMPICILLIN SODIUM/SULBACTAM 1.5 GM in SODIUM CHLORIDE 0.9% IV 50 ML IVPB ×2 (05:09→12:30)
[2019-07-25 05:35] LABS: Basophils Percent Auto 0.3 % (0.2-1.2); Eosinophils Percent Auto 0.1 % (0-4.4); Hematocrit 32.4 % (42.0-52.0); Hemoglobin 11.3 g/dL (14.0-18.0); Immature Granulocyte Absolute 0.03 K/mm3 (0.00-0.031); Immature Granulocyte Percent A 0.4 % (0-0.5); Lymphocytes Absolute Auto 1.01 K/mm3 (0.9-3.2); Lymphocytes Percent Auto 14.8 % (18.3-44.2); Mean Corpuscular HGB Conc 34.9 g/dl (32-36); Mean Corpuscular Hemoglobin 30.4 pg (26-34); Mean Corpuscular Volume 87.1 fl (80-100); Mean Platelet Volume 8.7 fl (7.4-10.4); Monocytes Absolute Auto 0.7 K/mm3 (0.1-0.6); Neutrophils Absolute Auto 5.1 K/mm3 (1.3-6.7); Neutrophils Percent Auto 74.4 % (45.5-73.1); Platelet Count Result 222 k/mm3 (150-375); Red Blood Count 3.72 M/mm3 (4.6-6.20); White Blood Count 6.8 K/mm3 (4.5-10.0)
[2019-07-25 05:52] LABS: Blood Urea Nitrogen 13 mg/dL (9-20); Calcium 8.3 mg/dL (8.4-10.2); Carbon Dioxide 27 mmol/L (22-30); Chloride 98 mmol/L (98-107); Estimated CRCL calculation 103 ml/min; Estimated Glomerular Filt Rate > 60; Glucose 121 mg/dL (75-110); Potassium 3.5 mmol/L (3.4-5.0); Sodium 131 mmol/L (137-145)
[2019-07-25] MEDS: PANTOPRAZOLE SOD SESQUIHYDRATE 20 MG TAB PO (09:01)
[2019-07-25] MEDS: SODIUM CHLORIDE 500 MG TABLET PO (09:01)
--- NOTE | 2019-07-25 11:41 | PM.IMPN ---
Progress Note: A&P Assessment and Plan (1) Abscess: Onset Date: ~07/17/19 Code(s): L02.91 - Cutaneous abscess, unspecified Status: Acute Assessment and Plan: 07/25/19 11:41 Patient with a cat bite on right index finger distal follow, seen by plastic surgeon, treated with ampicillin, Has had fever. Which is now trending Finger only tender to pressure over nail fold. ROM improved. Will continue to monitor patient is seen by Dr. Dr. Piedra, recommended to continue current management and further recommendation to follow, patient was seen by Dr. Unger on 07/23 recommended to monitor 1 more day and poosibly discharge today however today patient compliants more pain, redness and swelling along the 2nd distal phalanx and DIP unable to flex and extend. also there is a red streak along right forearm, today D/W [place] patient will need further exploring on the finger, will order x-ray of the finger and repeat blood culture, follow Dr. Piedra recommendation for change in abx, . patient is clinically stable denies any fever or chills Subjective Date/time seen: 07/25/19 11:41 Patient with a cat bite on right index finger distal follow, seen by plastic surgeon, treated with ampicillin, Has had fever. Which is now trending Finger only tender to pressure over nail fold. ROM improved. Will continue to monitor patient is seen by Dr. Dr. Piedra, recommended to continue current management and further recommendation to follow, patient was seen by Dr. Unger on 07/23 recommended to monitor 1 more day and poosibly discharge today however today patient compliants more pain, redness and swelling along the 2nd distal phalanx and DIP unable to flex and extend. also there is a red streak along right forearm, today D/W [place] patient will need further exploring on the finger, will order x-ray of the finger and repeat blood culture, follow Dr. Piedra recommendation for change in abx, . patient is clinically stable denies any fever or chills Review of Systems Review of Systems: All systems reviewed & are unremarkable except as noted in HPI and below Exam Const: General: comfortable and no acute distress HENMT: General nose exam: Normal nares present Mouth: Yes moist mucous membranes Eyes: General: appearance normal, both eyes and all related structures Sclera: sclerae normal Neck: Neck: supple Resp: Effort & Inspection: normal respiratory effort Auscultation: clear to auscultation bilaterally Cardio: Rate: regular rate Rhythm: regular rhythm GI: Auscultation: normal bowel sounds Skin: Other: right index finger distal phalanx dorsal aspect erythematous, edematous, and tender, unable to flex and extend at the DIP, also there is a red streak along the forearm. Neuro: Speech: normal speech Sensory Exam: normal sensation Extrem: General: normal to inspection Psych: Affect: Anxious affect present Objective Data Vital Signs Vital Signs: Vital Signs - 24 hr 07/24/19 13:38 07/24/19 17:37 07/24/19 22:00 Temperature 99.6 F 99.6 F 99.6 F Pulse Rate 78 95 86 Respiratory Rate 18 18 16 Blood Pressure 144/67 H 134/64 124/56 L Pulse Oximetry 97 95 97 07/25/19 06:00 Temperature 98.2 F Pulse Rate 78 Respiratory Rate 16 Blood Pressure 111/53 L Pulse Oximetry 97 Intake/Output Intake/Output: Intake & Output 07/22/19 07/23/19 07/24/19 07/25/19 23:59 23:59 23:59 23:59 Intake Total 2019 3350 2550 1040 Output Total 1525 1150 400 100 Balance 495 2200 2150 940 Meds/Results Medications: Active Medications Generic Name Dose Route Start Last Admin Trade Name Freq PRN Reason Stop Dose Admin Acetaminophen 650 mg 07/22/19 05:01 07/22/19 22:08 Tylenol Tablet PO 650 mg Q4H PRN Administration Fever > 100.0 Hydrocodone Bitart/Acetaminophen 1 tab 07/20/19 22:02 07/24/19 10:17 [place] 5-325 Mg PO 1 tab Q4H PRN Administration Pain Rated 4-6 Ampicillin Sodium/Sulbactam 50 mls @ 100 mls/hr
--- NOTE | 2019-07-25 11:45 | WPDPN ---
Progress Note: A&P Assessment and Plan (1) Abscess: Onset Date: ~07/17/19 Code(s): L02.91 - Cutaneous abscess, unspecified Status: Acute Assessment and Plan: On going signs of infectious process. Suspect undrained abscess site, possibly septic DIP joint. Possible secondary uncovered organism. New blood cultures x2. Re culture finger wound. X-ray digit to evaluate joint. Discuss with DR Piedra. Likely will take to OR again to decompress DIP joint. (2) Cat bite: Onset Date: ~07/2019 Qualifiers: Encounter type: initial encounter Qualified Code(s): W55.01XA - Bitten by cat, initial encounter Code(s): W55.01XA - Bitten by cat, initial encounter Status: Acute Exam Narrative: Exam Narrative: Afebrile now over 30 hours. WBC normal. Serum glucose ~120-140. CRP up to 12.1. Blood cx from 5-13: no growth. Right upper extremity: Index finger edematous entire length. Derek color extends from tip to DIP joint. Subcutaneous tissue appears gangrenous. [place]ia size pustules are more numerous. No pus is expressible. Nail fold area most tender. Flexes and extends PIP joint without tenderness. No signs of flexor tenosynovitis. Moves DIP joint slightly, but restriction due more to swelling than pain. Lymphangitis extends from finger to axilla with supra trochlear and axillary adenopathy. Objective Data Vital Signs Vital Signs: Vital Signs - 24 hr 07/24/19 13:38 07/24/19 17:37 07/24/19 22:00 Temperature 37.6 C 37.6 C 37.6 C Pulse Rate 78 95 86 Respiratory Rate 18 18 16 Blood Pressure 144/67 H 134/64 124/56 L Pulse Oximetry 97 95 97 07/25/19 06:00 Temperature 36.8 C Pulse Rate 78 Respiratory Rate 16 Blood Pressure 111/53 L Pulse Oximetry 97 Intake/Output Intake/Output: Intake & Output 07/22/19 07/23/19 07/24/19 07/25/19 23:59 23:59 23:59 23:59 Intake Total 2019 3350 2550 1040 Output Total 1524 1150 400 100 Balance 495 2200 2150 940 Meds/Results Medications: Active Medications Generic Name Dose Route Start Last Admin Trade Name Freq PRN Reason Stop Dose Admin Acetaminophen 650 mg 07/22/19 05:01 07/22/19 22:08 Tylenol Tablet PO 650 mg Q4H PRN Administration Fever > 100.0 Hydrocodone Bitart/Acetaminophen 1 tab 07/20/19 22:02 07/24/19 10:17 [place] 5-325 Mg PO 1 tab Q4H PRN Administration Pain Rated 4-6 Ampicillin Sodium/Sulbactam 50 mls @ 100 mls/hr 07/21/19 18:00 07/25/19 06:57 Sodium 1.5 gm/ Sodium Chloride IVPB Infused Q6HR MYRA Infusion Pantoprazole Sodium 20 mg 07/23/19 09:00 07/25/19 09:01 Protonix PO 20 mg QAM MYRA Administration Sodium Chloride 500 mg 07/24/19 09:00 07/25/19 09:01 Sodium Chloride PO 500 mg QAM MYRA Administration Sodium Hypochlorite 1 applic 07/22/19 13:00 07/23/19 11:43 [place] Quarter Strength TOPICAL 1 applic Q4HWA MYRA Administration Radiology Results: ITS Impressions Finger X-Ray 07/20/19 19:49 IMPRESSION: 1. XR finger 2nd RT min 2V exam without acute osseous findings. 2. Soft tissue swelling. Chest X-Ray 07/23/19 07:59 IMPRESSION: No active cardiopulmonary disease Labs Labs: Laboratory Results - last 24 hr 07/25/19 07/25/19 05:25 05:25 WBC 6.8 RBC 3.72 L Hgb 11.3 L Hct 32.4 L MCV 87.1 MCH 30.4 MCHC 34.9 RDW 13.0 Plt Count 222 MPV 8.7 Immature Gran % (Auto) 0.4 Neut % (Auto) 74.4 H Lymph % (Auto) 14.8 L [place] % (Auto) 10.0 H Eos % (Auto) 0.1 Baso % (Auto) 0.3 Lymph # (Auto) 1.01 [place] # (Auto) 0.7 H Eos # (Auto) 0.0 Baso # (Auto) 0.0 Abs Immat Gran (auto) 0.03 Absolute Neuts (auto) 5.1 Absolute Nucleated RBC 0.0 Nucleated RBC % 0.0 Sodium 131 L Potassium 3.5 Chloride 98 Carbon Dioxide 27 BUN 13 Creatinine 0.80 Estim Creat Clear Calc 103 Estimated GFR > 60 Glucose 121 H Calcium 8.3 L Quality VTE Prophyla
--- NOTE | 2019-07-25 14:05 | WPDINFPN2 ---
Progress Note: A&P Assessment and Plan (1) Abscess: Onset Date: ~07/17/19 Code(s): L02.91 - Cutaneous abscess, unspecified Status: Acute Assessment and Plan: 1. [place] cat bite cellulitis and abscess. Now with lymphangitis. Suspect osteomyelitis of the distal phalanx and arthritis of the DIP, due to same organism. 2. Hyperglycemia, no Hx DM REC Amp Sulb #5, POD # 2/4. I do not think that his progression in exam abnormalities is due to untreated pathogen, but rather is due to deep space infection. Thus continue same therapy. Recultured. Subjective Date/time seen: 07/25/19 14:05 Interval history: IV at medial R antecubital fossa out 2 days ago. Pain in finger. Nodule noted by patient today right axilla Exam Narrative: Exam Narrative: t max since last visit 37.8 Const: General: no acute distress Resp: Effort & Inspection: normal respiratory effort Auscultation: clear to auscultation bilaterally Cardio: Rate: regular rate Rhythm: regular rhythm Heart sounds: no gallops and no murmurs GI: GI Palp: Yes Soft to palpation Skin: General skin exam: normal color and no rashes or lesions noted Extrem: Other: R axilla LN. Lymphangitis medial upper arm and ventral forearm. No phlebitis at former IV site AC fossa. Edema friable skin erythema hemorrhage at mid and distal phalanges R index Objective Data Vital Signs Vital Signs: Vital Signs - 24 hr 07/24/19 17:37 07/24/19 22:00 07/25/19 06:00 Temperature 37.6 C 37.6 C 36.8 C Pulse Rate 95 86 78 Respiratory Rate 18 16 16 Blood Pressure 134/64 124/56 L 111/53 L Pulse Oximetry 95 97 97 Intake/Output Intake/Output: Intake & Output 07/22/19 07/23/19 07/24/19 07/25/19 23:59 23:59 23:59 23:59 Intake Total 2019 3350 2550 1330 Output Total 1525 1150 400 100 Balance 495 2200 2150 1230 Meds/Results Medications: Active Medications Generic Name Dose Route Start Last Admin Trade Name Freq PRN Reason Stop Dose Admin Acetaminophen 650 mg 07/22/19 05:01 07/22/19 22:08 Tylenol Tablet PO 650 mg Q4H PRN Administration Fever > 100.0 Hydrocodone Bitart/Acetaminophen 1 tab 07/20/19 22:02 07/25/19 12:31 [place] 5-325 Mg PO 1 tab Q4H PRN Administration Pain Rated 4-6 Ampicillin Sodium/Sulbactam 50 mls @ 100 mls/hr 07/21/19 18:00 07/25/19 13:00 Sodium 1.5 gm/ Sodium Chloride IVPB Infused Q6HR MYRA Infusion Pantoprazole Sodium 20 mg 07/23/19 09:00 07/25/19 09:01 Protonix PO 20 mg QAM MYRA Administration Sodium Chloride 500 mg 07/24/19 09:00 07/25/19 09:01 Sodium Chloride PO 500 mg QAM MYRA Administration Sodium Hypochlorite 1 applic 07/22/19 13:00 07/23/19 11:43 [place] Strength TOPICAL 1 applic Q4HWA MYRA Administration Radiology Results: ITS Impressions Chest X-Ray 07/23/19 07:59 IMPRESSION: No active cardiopulmonary disease Labs Labs: Laboratory Results - last 24 hr 07/25/19 07/25/19 05:25 05:25 WBC 6.8 RBC 3.72 L Hgb 11.3 L Hct 32.4 L MCV 87.1 MCH 30.4 MCHC 34.9 RDW 13.0 Plt Count 222 MPV 8.7 Immature Gran % (Auto) 0.4 Neut % (Auto) 74.4 H Lymph % (Auto) 14.8 L [place] % (Auto) 10.0 H Eos % (Auto) 0.1 Baso % (Auto) 0.3 Lymph # (Auto) 1.01 [place] # (Auto) 0.7 H Eos # (Auto) 0.0 Baso # (Auto) 0.0 Abs Immat Gran (auto) 0.03 Absolute Neuts (auto) 5.1 Absolute Nucleated RBC 0.0 Nucleated RBC % 0.0 Sodium 131 L Potassium 3.5 Chloride 98 Carbon Dioxide 27 BUN 13 Creatinine 0.80 Estim Creat Clear Calc 103 Estimated GFR > 60 Glucose 121 H Calcium 8.3 L
--- NOTE | 2019-07-25 15:38 | PM.OP ---
Procedure Note - Brief Procedure Note - Brief Date of procedure: 07/25/19 Pre-op diagnosis: Right Second Finger Cellulitis with Abcess Septic right index finger with persistant cellulitis Procedure performed: I&D septic right index finger with DIP joint arthrotomy.. Anesthesia: local Surgeon: Saud Sykes MD Homemaker Companion: Clary Drains: Yes Packing: Yes Pathology: none sent Complications: No immediate complications Condition: stable Disposition: floor
[2019-07-25] MEDS: LIDO 1%/EPINEPHRINE 1:100,000 20 ML VIAL 7 ML INFILTRATE (16:06)
--- NOTE | 2019-07-25 16:39 | SUR.OPER ---
mepilex AG applied to surgical wound site
--- NOTE | 2019-07-25 16:56 | PM.PROC ---
Procedure Note - Detailed Date of procedure: 07/25/19 Pre-op diagnosis: Right Second Finger Cellulitis with Abcess Post-op diagnosis: same Procedure performed: Third serial I and D right index finger with distal interphalangeal joint arthrotomy Description of procedure: The patient was marked in the holding area and taken to the operating room where he was placed supine on the operating table. We were in room 7, a time-out was held and confirmed. The digit was anesthetized with 1% lidocaine with epinephrine as an intrathecal block. Adequate anesthesia was quickly obtained. The hand was prepped and draped in the usual fashion. The wounds were reopened; these are on the radial aspect bridging the distal interphalangeal joint and dorsally involving the nail fold and nail bed. There was pus at the nail fold wound. There were multiple tiny milia like pustules throughout the purpuric skin of the distal phalanx, only on the dorsal aspect. The dried epithelium was peeled off and this opened most of those small pustule. Distal phalangeal bone is exposed already under the area of the lunula. We did not see significant pus sitting in that position. The nailbed was very adherent to the distal phalanx distal to the exposed bone. The terminal tendon and its insertion to the distal phalanx was intact. This tendon has not been liquified. It did not appear that the joint capsule had been violated on the radial aspect as the joint was stable and the joint capsule was firmly attached and seemed to be competent. The terminal tendon was dissected to confirm its condition and the dorsal ulnar joint capsule was opened. A small amount of bone was rongeured away from the dorsal base allowing us to access the joint with a small catheter and to look in the joint. We did not see purulence there. This was irrigated with bacitracin solution, approximately 40 milliliter. The dorsal incision was extended approximately 1.5 cm over the middle phalanx and the soft tissue was elevated away from the extensor mechanism. No gangrenous tissue was seen in that direction, no purulence was noted. It appeared that the extent of the pus lay within the skin and subcutaneous tissue. All of this was irrigated with bacitracin solution. A [place] drain was passed through an opening from the dorsum to the radial side wound, an opening which I created with some effort as this tissue was not gangrenous. The dorsal wound and the radial 1 were dressed with Mepilex Ag sponges cut to size and shape. The [place] drain was sutured with a single 4-0 nylon. A bulky gauze dressing was applied. The tourniquet had been on the finger for about 4/5ths of this case and was removed as the dressing was applied. No additional lidocaine with epinephrine or other anesthetic was given. He is discharged back to the [facility] to continue IV Unasyn. We will change the Mepilex sponges daily. A new x-ray today did not show alterations in the bone. A new wound culture and blood cultures are pending as he had had lymphangitis this morning. Surgeon: Saud Sykes MD
[2019-07-25] MEDS: AMPICILLIN SULB 3 GM/NS 100 ML 3 GM/100 ML VIAL IVPB ×2 (17:30→23:24)
[2019-07-25] MEDS: MORPHINE SULFATE 2 MG/ML INJ IV PUSH (22:01)
[2019-07-26] MEDS: MORPHINE SULFATE 2 MG/ML INJ IV PUSH (02:31)
[2019-07-26 04:40] VITALS: TEMP 37.9
[2019-07-26 05:22] LABS: Basophils Percent Auto 0.4 % (0.2-1.2); Eosinophils Percent Auto 0.1 % (0-4.4); Hematocrit 31.2 % (42.0-52.0); Hemoglobin 10.8 g/dL (14.0-18.0); Immature Granulocyte Absolute 0.04 K/mm3 (0.00-0.031); Immature Granulocyte Percent A 0.6 % (0-0.5); Mean Corpuscular HGB Conc 34.6 g/dl (32-36); Mean Corpuscular Hemoglobin 30.3 pg (26-34); Mean Corpuscular Volume 87.4 fl (80-100); Mean Platelet Volume 8.6 fl (7.4-10.4); Monocytes Absolute Auto 0.8 K/mm3 (0.1-0.6); Monocytes Percent Auto 11.2 % (2.6-8.5); Neutrophils Absolute Auto 5.3 K/mm3 (1.3-6.7); Neutrophils Percent Auto 73.7 % (45.5-73.1); Platelet Count Result 229 k/mm3 (150-375); Red Blood Count 3.57 M/mm3 (4.6-6.20); Red Cell Distribution Width 13.1 % (11.5-14.5); White Blood Count 7.2 K/mm3 (4.5-10.0)
[2019-07-26 05:35] LABS: Blood Urea Nitrogen 14 mg/dL (9-20); Calcium 8.2 mg/dL (8.4-10.2); Carbon Dioxide 28 mmol/L (22-30); Chloride 98 mmol/L (98-107); Estimated CRCL calculation 103 ml/min; Estimated Glomerular Filt Rate > 60; Glucose 114 mg/dL (75-110); Potassium 3.7 mmol/L (3.4-5.0); Sodium 132 mmol/L (137-145)
[2019-07-26 06:00] VITALS: BP 117/44; PULSE 82; RESP 18; TEMP 36.8; O2SAT 99
[2019-07-26] MEDS: AMPICILLIN SULB 3 GM/NS 100 ML 3 GM/100 ML VIAL IVPB ×4 (06:16→23:46)
[2019-07-26] MEDS: SODIUM CHLORIDE 500 MG TABLET PO (09:24)
[2019-07-26] MEDS: PANTOPRAZOLE SOD SESQUIHYDRATE 20 MG TAB PO (09:24)
--- NOTE | 2019-07-26 11:13 | WPDPN ---
Progress Note: A&P Assessment and Plan (1) Cat bite: Onset Date: ~07/2019 Qualifiers: Encounter type: initial encounter Qualified Code(s): W55.01XA - Bitten by cat, initial encounter Code(s): W55.01XA - Bitten by cat, initial encounter Status: Acute Assessment and Plan: Continue IV Unasyn and topical Mepilex Ag dressings. Time Spent With Patient Time with patient: less than 15 minutes Exam Narrative: Exam Narrative: Afebrile. WBC remains below 10. Cultures pending. Wound redressed. Color remains cyanotic and purpuric. However, today there are no cutaneous pustules and no purulance. All visible tissue appears to be viable. [place] drain remains. Mepilex Ag dressing replaced. Objective Data Vital Signs Vital Signs: Vital Signs - 24 hr 07/25/19 14:00 07/25/19 15:55 07/25/19 16:10 Temperature 36.9 C Pulse Rate 77 76 75 Respiratory Rate 20 15 15 Blood Pressure 134/68 144/67 H 133/73 Pulse Oximetry 97 95 96 07/25/19 16:15 07/25/19 16:25 07/25/19 16:35 Temperature 36.9 C 36.9 C 36.9 C Pulse Rate 70 71 72 Respiratory Rate 15 15 15 Blood Pressure 127/70 138/71 130/66 Pulse Oximetry 97 97 98 07/25/19 17:00 07/25/19 21:15 07/26/19 04:40 Temperature 37.0 C 37.0 C 37.9 C H Pulse Rate 73 78 Respiratory Rate 18 14 Blood Pressure 111/58 L 114/56 L Pulse Oximetry 98 97 07/26/19 06:00 Temperature 36.8 C Pulse Rate 82 Respiratory Rate 18 Blood Pressure 117/44 L Pulse Oximetry 99 Intake/Output Intake/Output: Intake & Output 07/23/19 07/24/19 07/25/19 07/26/19 23:59 23:59 23:59 23:59 Intake Total 3350 2550 2130 540 Output Total 1150 400 375 350 Balance 2200 2150 1755 190 Meds/Results Medications: Active Medications Generic Name Dose Route Start Last Admin Trade Name Freq PRN Reason Stop Dose Admin Acetaminophen 650 mg 07/22/19 05:01 07/22/19 22:08 Tylenol Tablet PO 650 mg Q4H PRN Administration Fever > 100.0 Hydrocodone Bitart/Acetaminophen 1 tab 07/20/19 22:02 07/26/19 09:24 [place] 5-325 Mg PO 1 tab Q4H PRN Administration Pain Rated 4-6 Ampicillin Sodium/Sulbactam Sodium 3 gm in 100 mls @ 200 mls/hr 07/25/19 18:00 07/26/19 06:47 Unasyn 3 Gm/Ns 100 Ml IVPB Infused Q6H MYRA Infusion Morphine Sulfate 2 mg 07/25/19 21:47 07/26/19 02:31 Morphine Sulfate Inj IV PUSH 2 mg Q4H PRN Administration Pain Rated 7-10 Pantoprazole Sodium 20 mg 07/23/19 09:00 07/26/19 09:24 Protonix PO 20 mg QAM MYRA Administration Sodium Chloride 500 mg 07/24/19 09:00 07/26/19 09:24 Sodium Chloride PO 500 mg QAM MYRA Administration Radiology Results: ITS Impressions Chest X-Ray 07/23/19 07:59 IMPRESSION: No active cardiopulmonary disease Finger X-Ray 07/25/19 17:05 IMPRESSION: 1. Prominent diffuse soft tissue swelling about the right second digit with no findings to suggest osteomyelitis. 2. Mild to moderate polyarticular osteoarthritis. Labs Labs: Laboratory Results - last 24 hr 07/26/19 07/26/19 05:09 05:09 WBC 7.2 RBC 3.57 L Hgb 10.8 L Hct 31.2 L MCV 87.4 MCH 30.3 MCHC 34.6 RDW 13.1 Plt Count 229 MPV 8.6 Immature Gran % (Auto) 0.6 H Neut % (Auto) 73.7 H Lymph % (Auto) 14.0 L [place] % (Auto) 11.2 H Eos % (Auto) 0.1 Baso % (Auto) 0.4 Lymph # (Auto) 1.00 [place] # (Auto) 0.8 H Eos # (Auto) 0.0 Baso # (Auto) 0.0 Abs Immat Gran (auto) 0.04 H Absolute Neuts (auto) 5.3 Absolute Nucleated RBC 0.0 Nucleated RBC % 0.0 Sodium 132 L Potassium 3.7 Chloride 98 Carbon Dioxide 28 BUN 14 Creatinine 0.80 Estim Creat Clear Calc 103 Estimated GFR > 60 Glucose 114 H Calcium 8.2 L Quality VTE Prophylaxis VTE prophylaxis: mechanical ordered
--- NOTE | 2019-07-26 13:04 | PM.IMPN ---
Progress Note: A&P Assessment and Plan (1) Abscess: Onset Date: ~07/17/19 Code(s): L02.91 - Cutaneous abscess, unspecified Status: Acute Assessment and Plan: 07/26/19 13:04 Patient with a cat bite on right index finger distal follow, seen by plastic surgeon, treated with ampicillin, Has had fever. Which is now trending Finger only tender to pressure over nail fold. ROM improved. Will continue to monitor patient is seen by Dr. Dr. Piedra, recommended to continue current management and further recommendation to follow, patient was seen by Dr. Unger on 07/23 recommended to monitor 1 more day and poosibly discharge on 07/24 however patient complianed more pain, redness and swelling along the 2nd distal phalanx and DIP unable to flex and extend. also there is a red streak along right forearm, D/W Ute patient patient was taken OR and the wound was re-irrigated and removed remaining pus, and repeated blood culture, patient was seen by Dr. Piedra recommendation and not suspect different organism, recommended to continue present antibiotic regimen. Today patient was seen by the surgeon, red streak along the forearm is improving, continue present management patient is clinically stable denies any fever or chills Subjective Date/time seen: 07/26/19 13:04 Patient with a cat bite on right index finger distal follow, seen by plastic surgeon, treated with ampicillin, Has had fever. Which is now trending Finger only tender to pressure over nail fold. ROM improved. Will continue to monitor patient is seen by Dr. Dr. Piedra, recommended to continue current management and further recommendation to follow, patient was seen by Dr. Unger on 07/23 recommended to monitor 1 more day and poosibly discharge on 07/24 however patient complianed more pain, redness and swelling along the 2nd distal phalanx and DIP unable to flex and extend. also there is a red streak along right forearm, D/W [place] patient patient was taken OR and the wound was re-irrigated and removed remaining pus, and repeated blood culture, patient was seen by Dr. Piedra recommendation and not suspect different organism, recommended to continue present antibiotic regimen. Today patient was seen by the surgeon, red streak along the forearm is improving, continue present management patient is clinically stable denies any fever or chills Review of Systems Review of Systems: All systems reviewed & are unremarkable except as noted in HPI and below Exam Const: General: comfortable and no acute distress HENMT: General nose exam: Normal nares present Eyes: General: appearance normal, both eyes and all related structures Sclera: sclerae normal Neck: Neck: supple Resp: Effort & Inspection: normal respiratory effort Auscultation: clear to auscultation bilaterally Cardio: Rate: regular rate Rhythm: regular rhythm GI: Auscultation: normal bowel sounds Neuro: Speech: normal speech Sensory Exam: normal sensation Extrem: Other: Right index finger distal phalanx with wound dressing. Psych: Affect: Anxious affect present Objective Data Vital Signs Vital Signs: Vital Signs - 24 hr 07/25/19 14:00 07/25/19 15:55 07/25/19 16:10 Temperature 98.4 F Pulse Rate 77 76 75 Respiratory Rate 20 15 15 Blood Pressure 134/68 144/67 H 133/73 Pulse Oximetry 97 95 96 07/25/19 16:15 07/25/19 16:25 07/25/19 16:35 Temperature 98.4 F 98.4 F 98.4 F Pulse Rate 70 71 72 Respiratory Rate 15 15 15 Blood Pressure 127/70 138/71 130/66 Pulse Oximetry 97 97 98 07/25/19 17:00 07/25/19 21:15 07/26/19 04:40 Temperature 98.6 F 98.6 F 100.2 F H Pulse Rate 73 78 Respiratory Rate 18 14 Blood Pressure 111/58 L 114/56 L Pulse Oximetry 98 97 07/26/19 06:00 Temperature 98.3 F Pulse Rate 82 Respiratory Rate 18 Blood Pressure 117/44 L Pulse Oximetry 99 Intake/Output Intake/Output: Intake & Output 07/23/19 07/24/19 07/25/19 07/26/19 23:59 23:59 23:59 23:59 Int
[2019-07-26 14:00] VITALS: BP 105/54; PULSE 77; RESP 20; TEMP 37.7; O2SAT 99
[2019-07-26 22:00] VITALS: BP 132/58; PULSE 89; RESP 18; TEMP 37.6; O2SAT 96
[2019-07-27 06:00] VITALS: BP 117/54; PULSE 71; RESP 18; TEMP 36.8; O2SAT 96
[2019-07-27 06:01] LABS: Basophils Percent Auto 0.4 % (0.2-1.2); Eosinophils Percent Auto 0.1 % (0-4.4); Hematocrit 31.5 % (42.0-52.0); Hemoglobin 10.9 g/dL (14.0-18.0); Immature Granulocyte Absolute 0.07 K/mm3 (0.00-0.031); Immature Granulocyte Percent A 0.9 % (0-0.5); Lymphocytes Absolute Auto 1.28 K/mm3 (0.9-3.2); Lymphocytes Percent Auto 16.8 % (18.3-44.2); Mean Corpuscular HGB Conc 34.6 g/dl (32-36); Mean Corpuscular Hemoglobin 30.3 pg (26-34); Mean Corpuscular Volume 87.5 fl (80-100); Mean Platelet Volume 8.7 fl (7.4-10.4); Monocytes Absolute Auto 0.7 K/mm3 (0.1-0.6); Monocytes Percent Auto 8.9 % (2.6-8.5); Neutrophils Absolute Auto 5.6 K/mm3 (1.3-6.7); Neutrophils Percent Auto 72.9 % (45.5-73.1); Platelet Count Result 259 k/mm3 (150-375); White Blood Count 7.6 K/mm3 (4.5-10.0)
[2019-07-27 06:12] LABS: Blood Urea Nitrogen 12 mg/dL (9-20); Calcium 8.1 mg/dL (8.4-10.2); Carbon Dioxide 30 mmol/L (22-30); Chloride 97 mmol/L (98-107); Estimated CRCL calculation 103 ml/min; Estimated Glomerular Filt Rate > 60; Glucose 112 mg/dL (75-110); Potassium 3.6 mmol/L (3.4-5.0); Sodium 131 mmol/L (137-145)
[2019-07-27] MEDS: AMPICILLIN SULB 3 GM/NS 100 ML 3 GM/100 ML VIAL IVPB ×3 (06:36→17:24)
[2019-07-27] MEDS: PANTOPRAZOLE SOD SESQUIHYDRATE 20 MG TAB PO (08:16)
[2019-07-27] MEDS: SODIUM CHLORIDE 500 MG TABLET PO (08:16)
--- NOTE | 2019-07-27 09:30 | WPDPN ---
Progress Note: A&P Assessment and Plan (1) Abscess: Onset Date: ~07/17/19 Code(s): L02.91 - Cutaneous abscess, unspecified Status: Acute Assessment and Plan: Discharge okay with me. Continue IV Unasyn per Dr Piedra via PICC line. Continue Silver gel /Mepilex transfer dressings per [facility] and follow up with them in their clinic per their orders. F/U with Dr anthony Saturday next week. 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 Exam Narrative: Exam Narrative: Condition generally appears stable without obvious improvement or worsening. Erythema extends on the palmar surface of the middle phalanx to mid shaft. Pt aware of this and will report further extension proximally. No new purulence. [place] drain remains. AROM is limited due to edema. Pt aware that DIPJ may never work well due to infection, swelling and osteoarthritis. Agree with dressing suggested by [facility]. Objective Data Vital Signs Vital Signs: Vital Signs - 24 hr 07/26/19 14:00 07/26/19 22:00 07/27/19 06:00 Temperature 37.7 C H 37.6 C 36.8 C Pulse Rate 77 89 71 Respiratory Rate 20 18 18 Blood Pressure 105/54 L 132/58 L 117/54 L Pulse Oximetry 99 96 96 Intake/Output Intake/Output: Intake & Output 07/24/19 07/25/19 07/26/19 07/27/19 23:59 23:59 23:59 23:59 Intake Total 2550 2130 1970 1200 Output Total 400 576 970 2573 Balance 2150 1755 1045 -100 Meds/Results Medications: Active Medications Generic Name Dose Route Start Last Admin Trade Name Freq PRN Reason Stop Dose Admin Acetaminophen 650 mg 07/22/19 05:01 07/22/19 22:08 Tylenol Tablet PO 650 mg Q4H PRN Administration Fever > 100.0 Hydrocodone Bitart/Acetaminophen 1 tab 07/20/19 22:02 07/26/19 09:24 [place] 5-325 Mg PO 1 tab Q4H PRN Administration Pain Rated 4-6 Ampicillin Sodium/Sulbactam Sodium 3 gm in 100 mls @ 200 mls/hr 07/25/19 18:00 07/27/19 07:00 Unasyn 3 Gm/Ns 100 Ml IVPB Infused Q6H MYRA Infusion Morphine Sulfate 2 mg 07/25/19 21:47 07/26/19 02:31 Morphine Sulfate Inj IV PUSH 2 mg Q4H PRN Administration Pain Rated 7-10 Pantoprazole Sodium 20 mg 07/23/19 09:00 07/27/19 08:16 Protonix PO 20 mg QAM MYRA Administration Sodium Chloride 500 mg 07/24/19 09:00 07/27/19 08:16 Sodium Chloride PO 500 mg QAM MYRA Administration Radiology Results: ITS Impressions Chest X-Ray 07/23/19 07:59 IMPRESSION: No active cardiopulmonary disease Finger X-Ray 07/25/19 17:05 IMPRESSION: 1. Prominent diffuse soft tissue swelling about the right second digit with no findings to suggest osteomyelitis. 2. Mild to moderate polyarticular osteoarthritis. Labs Labs: Laboratory Results - last 24 hr 07/27/19 07/27/19 05:29 05:29 WBC 7.6 RBC 3.60 L Hgb 10.9 L Hct 31.5 L MCV 87.5 MCH 30.3 MCHC 34.6 RDW 13.0 Plt Count 259 MPV 8.7 Immature Gran % (Auto) 0.9 H Neut % (Auto) 72.9 Lymph % (Auto) 16.8 L [place] % (Auto) 8.9 H Eos % (Auto) 0.1 Baso % (Auto) 0.4 Lymph # (Auto) 1.28 [place] # (Auto) 0.7 H Eos # (Auto) 0.0 Baso # (Auto) 0.0 Abs Immat Gran (auto) 0.07 H Absolute Neuts (auto) 5.6 Absolute Nucleated RBC 0.0 Nucleated RBC % 0.0 Sodium 131 L Potassium 3.6 Chloride 97 L Carbon Dioxide 30 BUN 12 Creatinine 0.80 Estim Creat Clear Calc 103 Estimated GFR > 60 Glucose 112 H Calcium 8.1 L Quality VTE Prophylaxis VTE prophylaxis: mechanical ordered
--- NOTE | 2019-07-27 10:50 | PCNWS ---
Weekly nutritional screen. Patient is tolerating current diet with adequate intake. No weight loss reported. No nutritional needs at this time.
[2019-07-27 14:00] VITALS: BP 113/50; PULSE 71; RESP 18; TEMP 37.2; O2SAT 97
--- NOTE | 2019-07-27 16:13 | PM.IMPN ---
Progress Note: A&P Assessment and Plan (1) Abscess: Onset Date: ~07/17/19 Code(s): L02.91 - Cutaneous abscess, unspecified Status: Acute Assessment and Plan: 07/27/19 16:13 Patient with a cat bite on right index finger distal phalanx , seen by plastic surgeon, treated with ampicillin, Has had fever. Which is now trending Finger only tender to pressure over nail fold. ROM improved. continued to monitor patient is seen by Dr. Dr. Piedra, recommended to continue current management and further recommendation to follow, patient was seen by Dr. Unger on 07/23 recommended to monitor 1 more day and poosibly discharge on 07/24 however patient complianed more pain, redness and swelling along the 2nd distal phalanx and DIP unable to flex and extend. also there is a red streak along right forearm, D/W Ute patient was taken OR and the wound was re-irrigated and removed remaining pus, and repeated blood culture, patient was seen by Dr. Piedra recommendation and not suspect different organism, recommended to continue present antibiotic regimen. Today patient was seen by the surgeon, red streak along the forearm is improving, continue present management patient is clinically stable denies any fever or chills and awaiting final recommendation from Dr. Mahoney for length of IV abx. Subjective Date/time seen: 07/27/19 16:13 Patient with a cat bite on right index finger distal phalanx , seen by plastic surgeon, treated with ampicillin, Has had fever. Which is now trending Finger only tender to pressure over nail fold. ROM improved. continued to monitor patient is seen by Dr. Dr. Piedra, recommended to continue current management and further recommendation to follow, patient was seen by Dr. Unger on 07/23 recommended to monitor 1 more day and poosibly discharge on 07/24 however patient complianed more pain, redness and swelling along the 2nd distal phalanx and DIP unable to flex and extend. also there is a red streak along right forearm, D/W Ute patient was taken OR and the wound was re-irrigated and removed remaining pus, and repeated blood culture, patient was seen by Dr. Piedra recommendation and not suspect different organism, recommended to continue present antibiotic regimen. Today patient was seen by the surgeon, red streak along the forearm is improving, continue present management patient is clinically stable denies any fever or chills and awaiting final recommendation from Dr. Mahoney for length of IV abx. Review of Systems Review of Systems: All systems reviewed & are unremarkable except as noted in HPI and below Exam Const: General: comfortable and no acute distress HENMT: General nose exam: Normal nares present Eyes: Sclera: sclerae normal Neck: Neck: supple Resp: Effort & Inspection: normal respiratory effort Auscultation: clear to auscultation bilaterally Cardio: Rate: regular rate Rhythm: regular rhythm GI: Auscultation: normal bowel sounds Skin: Other: right index finger distal phalanx with wound dressing there is red streak along right forearm. Neuro: Speech: normal speech Sensory Exam: normal sensation Extrem: General: normal to inspection Psych: Affect: Anxious affect present Objective Data Vital Signs Vital Signs: Vital Signs - 24 hr 07/26/19 22:00 07/27/19 06:00 07/27/19 14:00 Temperature 99.6 F 98.3 F 99.0 F Pulse Rate 89 71 71 Respiratory Rate 18 18 18 Blood Pressure 132/58 L 117/54 L 113/50 L Pulse Oximetry 96 96 97 Intake/Output Intake/Output: Intake & Output 07/24/19 07/25/19 07/26/19 07/27/19 23:59 23:59 23:59 23:59 Intake Total 2550 2130 1970 1900 Output Total 400 667 894 1396 Balance 2150 1755 1045 600 Meds/Results Medications: Active Medications Generic Name Dose Route Start Last Admin Trade Name Freq PRN Reason Stop Dose Admin Acetaminophen 650 mg 07/22/19 05:01 07/22/19 22:08 Tylenol Tablet PO 650 mg Q4H PRN Administration Feve
--- NOTE | 2019-07-27 18:29 | WPDPN ---
Progress Note: A&P Assessment and Plan (1) Abscess: Onset Date: ~07/17/19 Code(s): L02.91 - Cutaneous abscess, unspecified Status: Acute Assessment and Plan: Surgical wound is improving. Smoldering cellulitis appears to be moving proximally. [place] drain remains. No new organisms on wound or blood cultures. Extremity is elevated all day. Continue IV Unasyn. Exam Narrative: Exam Narrative: Most tissue is responding to therapy. Wound margins are viable. No expressible purulence. Edema and erythema seem to be greater now on the middle phalanx. Most tender dorsally. No flexor tenosynovitis. No new blisters. No frankly gangrenous tissue. Objective Data Vital Signs Vital Signs: Vital Signs - 24 hr 07/26/19 22:00 07/27/19 06:00 07/27/19 14:00 Temperature 37.6 C 36.8 C 37.2 C Pulse Rate 89 71 71 Respiratory Rate 18 18 18 Blood Pressure 132/58 L 117/54 L 113/50 L Pulse Oximetry 96 96 97 Intake/Output Intake/Output: Intake & Output 07/24/19 07/25/19 07/26/19 07/27/19 23:59 23:59 23:59 23:59 Intake Total 2550 2130 1970 1900 Output Total 400 210 338 1360 Balance 2150 1755 1045 600 Meds/Results Medications: Active Medications Generic Name Dose Route Start Last Admin Trade Name Freq PRN Reason Stop Dose Admin Acetaminophen 650 mg 07/22/19 05:01 07/22/19 22:08 Tylenol Tablet PO 650 mg Q4H PRN Administration Fever > 100.0 Hydrocodone Bitart/Acetaminophen 1 tab 07/20/19 22:02 07/27/19 12:44 [place] 5-325 Mg PO 1 tab Q4H PRN Administration Pain Rated 4-6 Ampicillin Sodium/Sulbactam Sodium 3 gm in 100 mls @ 200 mls/hr 07/25/19 18:00 07/27/19 17:24 Unasyn 3 Gm/Ns 100 Ml IVPB 200 mls/hr Q6H MYRA Administration Morphine Sulfate 2 mg 07/25/19 21:47 07/26/19 02:31 Morphine Sulfate Inj IV PUSH 2 mg Q4H PRN Administration Pain Rated 7-10 Pantoprazole Sodium 20 mg 07/23/19 09:00 07/27/19 08:16 Protonix PO 20 mg QAM MYRA Administration Sodium Chloride 500 mg 07/24/19 09:00 07/27/19 08:16 Sodium Chloride PO 500 mg QAM MYRA Administration Radiology Results: ITS Impressions Chest X-Ray 07/23/19 07:59 IMPRESSION: No active cardiopulmonary disease Finger X-Ray 07/25/19 17:05 IMPRESSION: 1. Prominent diffuse soft tissue swelling about the right second digit with no findings to suggest osteomyelitis. 2. Mild to moderate polyarticular osteoarthritis. Labs Labs: Laboratory Results - last 24 hr 07/27/19 07/27/19 05:29 05:29 WBC 7.6 RBC 3.60 L Hgb 10.9 L Hct 31.5 L MCV 87.5 MCH 30.3 MCHC 34.6 RDW 13.0 Plt Count 259 MPV 8.7 Immature Gran % (Auto) 0.9 H Neut % (Auto) 72.9 Lymph % (Auto) 16.8 L [place] % (Auto) 8.9 H Eos % (Auto) 0.1 Baso % (Auto) 0.4 Lymph # (Auto) 1.28 [place] # (Auto) 0.7 H Eos # (Auto) 0.0 Baso # (Auto) 0.0 Abs Immat Gran (auto) 0.07 H Absolute Neuts (auto) 5.6 Absolute Nucleated RBC 0.0 Nucleated RBC % 0.0 Sodium 131 L Potassium 3.6 Chloride 97 L Carbon Dioxide 30 BUN 12 Creatinine 0.80 Estim Creat Clear Calc 103 Estimated GFR > 60 Glucose 112 H Calcium 8.1 L Quality VTE Prophylaxis VTE prophylaxis: mechanical ordered
[2019-07-27 22:00] VITALS: BP 117/52; PULSE 77; RESP 18; TEMP 37.2; O2SAT 96
[2019-07-28] MEDS: AMPICILLIN SULB 3 GM/NS 100 ML 3 GM/100 ML VIAL IVPB ×5 (00:10→23:59)
[2019-07-28 05:43] LABS: Basophils Percent Auto 0.5 % (0.2-1.2); Eosinophils Percent Auto 0.4 % (0-4.4); Hematocrit 30.5 % (42.0-52.0); Hemoglobin 10.3 g/dL (14.0-18.0); Immature Granulocyte Absolute 0.09 K/mm3 (0.00-0.031); Immature Granulocyte Percent A 1.2 % (0-0.5); Lymphocytes Absolute Auto 1.53 K/mm3 (0.9-3.2); Lymphocytes Percent Auto 20.5 % (18.3-44.2); Mean Corpuscular HGB Conc 33.8 g/dl (32-36); Mean Corpuscular Hemoglobin 29.7 pg (26-34); Mean Corpuscular Volume 87.9 fl (80-100); Mean Platelet Volume 8.8 fl (7.4-10.4); Monocytes Absolute Auto 0.7 K/mm3 (0.1-0.6); Monocytes Percent Auto 9.5 % (2.6-8.5); Neutrophils Absolute Auto 5.1 K/mm3 (1.3-6.7); Neutrophils Percent Auto 67.9 % (45.5-73.1); Platelet Count Result 274 k/mm3 (150-375); Red Blood Count 3.47 M/mm3 (4.6-6.20); Red Cell Distribution Width 13.2 % (11.5-14.5); White Blood Count 7.5 K/mm3 (4.5-10.0)
[2019-07-28 06:00] VITALS: BP 117/61; PULSE 67; RESP 20; TEMP 36.2; O2SAT 98
[2019-07-28 06:18] LABS: Blood Urea Nitrogen 13 mg/dL (9-20); Calcium 7.8 mg/dL (8.4-10.2); Carbon Dioxide 28 mmol/L (22-30); Chloride 100 mmol/L (98-107); Estimated CRCL calculation 103 ml/min; Estimated Glomerular Filt Rate > 60; Glucose 113 mg/dL (75-110); Potassium 3.7 mmol/L (3.4-5.0); Sodium 134 mmol/L (137-145)
[2019-07-28 06:32] LABS: Platelet Clumps Present; Platelet Estimate Adequate (Adequate)
[2019-07-28 06:33] LABS: Macrocytosis 1+ (NORMAL); Smudge Cells FEW
[2019-07-28] MEDS: PANTOPRAZOLE SOD SESQUIHYDRATE 20 MG TAB PO (08:52)
[2019-07-28] MEDS: SODIUM CHLORIDE 500 MG TABLET PO (08:52)
--- NOTE | 2019-07-28 10:02 | WPDPN ---
Progress Note: A&P Additional Plan Suspect poor response to therapy may be due to heavy smoking history and the condition of the digit on presentation to the ER on post bite day 4. Continue Unasyn. [facility] cnsult for soaks or other dessings. Exam Narrative: Exam Narrative: Afebrile. WBC continues less than 10 with. Finger appears the same. Drain intact. Extensor tendon remains intact. No joint tenderness with passive ROM of DIP joint. Tenderness is only to pressure in the dorsal wound area and laterally at the distal phalanx. Derek color continues at the middle phalanx. No evidence of flexor tendon sheath involvement. This area not tender to compression. (Says it feels good.) No new blisters or purulence. But much of the dorsal tissue of the distal phalanx appears poorly perfused. Objective Data Vital Signs Vital Signs: Vital Signs - 24 hr 07/27/19 14:00 07/27/19 22:00 07/28/19 06:00 Temperature 37.2 C 37.2 C 36.2 C L Pulse Rate 71 77 67 Respiratory Rate 18 18 20 Blood Pressure 113/50 L 117/52 L 117/61 Pulse Oximetry 97 96 98 Intake/Output Intake/Output: Intake & Output 07/25/19 07/26/19 07/27/19 07/28/19 23:59 23:59 23:59 23:59 Intake Total 2130 1970 2800 1160 Output Total 356 221 8494 900 Balance 1755 1045 1150 260 Meds/Results Medications: Active Medications Generic Name Dose Route Start Last Admin Trade Name Freq PRN Reason Stop Dose Admin Acetaminophen 650 mg 07/22/19 05:01 07/22/19 22:08 Tylenol Tablet PO 650 mg Q4H PRN Administration Fever > 100.0 Hydrocodone Bitart/Acetaminophen 1 tab 07/20/19 22:02 07/27/19 12:44 [place] 5-325 Mg PO 1 tab Q4H PRN Administration Pain Rated 4-6 Ampicillin Sodium/Sulbactam Sodium 3 gm in 100 mls @ 200 mls/hr 07/25/19 18:00 07/28/19 06:44 Unasyn 3 Gm/Ns 100 Ml IVPB Infused Q6H MYRA Infusion Morphine Sulfate 2 mg 07/25/19 21:47 07/26/19 02:31 Morphine Sulfate Inj IV PUSH 2 mg Q4H PRN Administration Pain Rated 7-10 Pantoprazole Sodium 20 mg 07/23/19 09:00 07/28/19 08:52 Protonix PO 20 mg QAM MYRA Administration Silver 1 each 07/27/19 09:00 07/27/19 21:29 Mepilex Ag 4 X4 Dressing TOPICAL Not Given DAILY MYRA Sodium Chloride 500 mg 07/24/19 09:00 07/28/19 08:52 Sodium Chloride PO 500 mg QAM MYRA Administration Radiology Results: ITS Impressions Chest X-Ray 07/23/19 07:59 IMPRESSION: No active cardiopulmonary disease Finger X-Ray 07/25/19 17:05 IMPRESSION: 1. Prominent diffuse soft tissue swelling about the right second digit with no findings to suggest osteomyelitis. 2. Mild to moderate polyarticular osteoarthritis. Labs Labs: Laboratory Results - last 24 hr 07/28/19 07/28/19 05:18 05:18 WBC 7.5 RBC 3.47 L Hgb 10.3 L Hct 30.5 L MCV 87.9 MCH 29.7 MCHC 33.8 RDW 13.2 Plt Count 274 MPV 8.8 Immature Gran % (Auto) 1.2 H Neut % (Auto) 67.9 Lymph % (Auto) 20.5 [place] % (Auto) 9.5 H Eos % (Auto) 0.4 Baso % (Auto) 0.5 Lymph # (Auto) 1.53 [place] # (Auto) 0.7 H Eos # (Auto) 0.0 Baso # (Auto) 0.0 Abs Immat Gran (auto) 0.09 H Absolute Neuts (auto) 5.1 Absolute Nucleated RBC 0.0 Nucleated RBC % 0.0 Smudge Cells Few Platelet Estimate Adequate Clumped Platelets Present Macrocytosis 1+ Sodium 134 L Potassium 3.7 Chloride 100 Carbon Dioxide 28 BUN 13 Creatinine 0.80 Estim Creat Clear Calc 103 Estimated GFR > 60 Glucose 113 H Calcium 7.8 L Quality VTE Prophylaxis VTE prophylaxis: mechanical ordered
[2019-07-28] MEDS: SILVERGEL (ELTA) 45 ML 1 APPLIC TOPICAL (10:59)
--- NOTE | 2019-07-28 13:38 | WPDINFPN2 ---
Progress Note: A&P Assessment and Plan (1) Abscess: Onset Date: ~07/17/19 Code(s): L02.91 - Cutaneous abscess, unspecified Status: Acute Assessment and Plan: 1. Pasturella cat bite cellulitis and abscess. Suspect osteomyelitis of the distal phalanx and arthritis of the DIP, due to same organism. Repeat culture no pathogens. 2. Hyperglycemia, no Hx DM REC Amp Sulb #8 / 28 days, POD # 5/7. Set up for PICC to accomplish the above. If no further surgical plans, ok for discharge. Subjective Date/time seen: 07/28/19 13:38 Interval history: feeling better Exam Narrative: Exam Narrative: afebrile Const: General: no acute distress Eyes: General: appearance normal, both eyes and all related structures Resp: Effort & Inspection: normal respiratory effort Auscultation: clear to auscultation bilaterally Cardio: Rate: regular rate Rhythm: regular rhythm Heart sounds: no murmurs GI: GI Palp: Yes Soft to palpation and No Tenderness to palpation present (GI) Skin: General skin exam: no rashes or lesions noted Extrem: Other: lymphangitis now confined to radial mid forearm. No nodes at axilla today. Finger dressed, + edema. Objective Data Vital Signs Vital Signs: Vital Signs - 24 hr 07/27/19 14:00 07/27/19 22:00 07/28/19 06:00 Temperature 37.2 C 37.2 C 36.2 C L Pulse Rate 71 77 67 Respiratory Rate 18 18 20 Blood Pressure 113/50 L 117/52 L 117/61 Pulse Oximetry 97 96 98 Intake/Output Intake/Output: Intake & Output 07/25/19 07/26/19 07/27/19 07/28/19 23:59 23:59 23:59 23:59 Intake Total 2130 1970 2800 1160 Output Total 952 974 4859 900 Balance 1755 1045 1150 260 Meds/Results Medications: Active Medications Generic Name Dose Route Start Last Admin Trade Name Freq PRN Reason Stop Dose Admin Acetaminophen 650 mg 07/22/19 05:01 07/22/19 22:08 Tylenol Tablet PO 650 mg Q4H PRN Administration Fever > 100.0 Hydrocodone Bitart/Acetaminophen 1 tab 07/20/19 22:02 07/28/19 10:18 [place] 5-325 Mg PO 1 tab Q4H PRN Administration Pain Rated 4-6 Ampicillin Sodium/Sulbactam Sodium 3 gm in 100 mls @ 200 mls/hr 07/25/19 18:00 07/28/19 12:42 Unasyn 3 Gm/Ns 100 Ml IVPB 200 mls/hr Q6H MYRA Administration Lidocaine HCl 5 ml 07/28/19 13:38 Xylocaine 1% Local Inj INFILTRATE 07/28/19 13:39 ONCE ONE Morphine Sulfate 2 mg 07/25/19 21:47 07/26/19 02:31 Morphine Sulfate Inj IV PUSH 2 mg Q4H PRN Administration Pain Rated 7-10 Pantoprazole Sodium 20 mg 07/23/19 09:00 07/28/19 08:52 Protonix PO 20 mg QAM MYRA Administration Silver Nitrate 1 applic 07/28/19 09:00 07/28/19 10:59 Silvergel TOPICAL 1 applic DAILY MYRA Administration Sodium Chloride 500 mg 07/24/19 09:00 07/28/19 08:52 Sodium Chloride PO 500 mg QAM MYRA Administration Wound Care/Dressing Products 1 patch 07/28/19 09:00 07/28/19 10:59 Mepilex Transfer Drsg 6x8 TOPICAL 1 patch QAM MYRA Administration Radiology Results: ITS Impressions Chest X-Ray 07/23/19 07:59 IMPRESSION: No active cardiopulmonary disease Finger X-Ray 07/25/19 17:05 IMPRESSION: 1. Prominent diffuse soft tissue swelling about the right second digit with no findings to suggest osteomyelitis. 2. Mild to moderate polyarticular osteoarthritis. Labs Labs: Laboratory Results - last 24 hr 07/28/19 07/28/19 05:18 05:18 WBC 7.5 RBC 3.47 L Hgb 10.3 L Hct 30.5 L MCV 87.9 MCH 29.7 MCHC 33.8 RDW 13.2 Plt Count 274 MPV 8.8 Immature Gran % (Auto) 1.2 H Neut % (Auto) 67.9 Lymph % (Auto) 20.5 [place] % (Auto) 9.5 H Eos % (Auto) 0.4 Baso % (Auto) 0.5 Lymph # (Auto) 1.53 [place] # (Auto) 0.7 H Eos # (Auto) 0.0 Baso # (Auto) 0.0 Abs Immat Gran (auto) 0.09 H Absolute Neuts (auto) 5.1 Absolute Nucleated RBC 0.0 Nucleated RBC % 0.0 Smudge Cells Few Platelet Estimate Adequate Clumped Platelets
[2019-07-28] MEDS: LIDOCAINE HCL 1% PF INJ 5 ML VIAL INFILTRATE (13:50)
[2019-07-28 14:00] VITALS: BP 113/52; PULSE 64; RESP 16; TEMP 36.8; O2SAT 96
--- NOTE | 2019-07-28 16:23 | PM.IMPN ---
Progress Note: A&P Assessment and Plan (1) Abscess: Onset Date: ~07/17/19 Code(s): L02.91 - Cutaneous abscess, unspecified Status: Acute Assessment and Plan: 07/28/19 16:23 Patient with a cat bite on right index finger distal phalanx , seen by plastic surgeon, treated with ampicillin, Has had fever. Which is now trending Finger only tender to pressure over nail fold. ROM improved. continued to monitor patient is seen by Dr. Dr. Piedra, recommended to continue current management and further recommendation to follow, patient was seen by Dr. Unger on 07/23 recommended to monitor 1 more day and poosibly discharge on 07/24 however patient complianed more pain, redness and swelling along the 2nd distal phalanx and DIP unable to flex and extend. also there is a red streak along right forearm, D/W Ute patient was taken OR and the wound was re-irrigated and removed remaining pus, and repeated blood culture, patient was seen by Dr. Piedra recommendation and not suspect different organism, recommended to continue present antibiotic regimen. Today patient was seen by the surgeon, red streak along the forearm is improving, recommended continue present management for 1 more day, patient is seen by Dr Piedra to day recommended IV Unasyn total of 11/05days, patient will have PICC line tomorros and possible discharge home, patient is clinically stable denies any fever or chills.. Subjective Date/time seen: 07/28/19 16:23 Patient with a cat bite on right index finger distal phalanx , seen by plastic surgeon, treated with ampicillin, Has had fever. Which is now trending Finger only tender to pressure over nail fold. ROM improved. continued to monitor patient is seen by Dr. Dr. Piedra, recommended to continue current management and further recommendation to follow, patient was seen by Dr. Unger on 07/23 recommended to monitor 1 more day and poosibly discharge on 07/24 however patient complianed more pain, redness and swelling along the 2nd distal phalanx and DIP unable to flex and extend. also there is a red streak along right forearm, D/W Ute patient was taken OR and the wound was re-irrigated and removed remaining pus, and repeated blood culture, patient was seen by Dr. Piedra recommendation and not suspect different organism, recommended to continue present antibiotic regimen. Today patient was seen by the surgeon, red streak along the forearm is improving, recommended continue present management for 1 more day, patient is seen by Dr Piedra to day recommended IV Unasyn total of 11/05days, patient will have PICC line tomorros and possible discharge home, patient is clinically stable denies any fever or chills.. Review of Systems Review of Systems: All systems reviewed & are unremarkable except as noted in HPI and below Exam Const: General: comfortable and no acute distress HENMT: General nose exam: Normal nares present Eyes: General: appearance normal, both eyes and all related structures Sclera: sclerae normal Neck: Neck: supple Resp: Effort & Inspection: normal respiratory effort Auscultation: clear to auscultation bilaterally Cardio: Rate: regular rate Rhythm: regular rhythm GI: Auscultation: normal bowel sounds Skin: General skin exam: normal color Other: right index finger distal phalanx with wound dressing there is red streak along right forearm. Neuro: Speech: normal speech Sensory Exam: normal sensation Extrem: General: normal to inspection Psych: Affect: Anxious affect present Objective Data Vital Signs Vital Signs: Vital Signs - 24 hr 07/27/19 22:00 07/28/19 06:00 07/28/19 14:00 Temperature 98.9 F 97.1 F L 98.2 F Pulse Rate 77 67 64 Respiratory Rate 18 20 16 Blood Pressure 117/52 L 117/61 113/52 L Pulse Oximetry 96 98 96 Intake/Output Intake/Output: Intake & Output 07/25/19 07/26/19 07/27/19 07/28/19 23:59 23:59 23:59 23:59 Intake Total 0 1970 2800 1500 Output Total 37
[2019-07-28 20:00] VITALS: PULSE 64; RESP 16; O2SAT 96
[2019-07-28 21:35] VITALS: BP 130/57; PULSE 80; RESP 16; TEMP 37; O2SAT 98
[2019-07-29 05:50] VITALS: BP 104/54; PULSE 73; RESP 16; TEMP 35.9; O2SAT 98
[2019-07-29] MEDS: AMPICILLIN SULB 3 GM/NS 100 ML 3 GM/100 ML VIAL IVPB (06:09)
[2019-07-29 06:40] LABS: Basophils Absolute Auto 0.1 K/mm3 (0.0-0.1); Basophils Percent Auto 0.6 % (0.2-1.2); Eosinophils Percent Auto 0.5 % (0-4.4); Hematocrit 30.3 % (42.0-52.0); Hemoglobin 10.3 g/dL (14.0-18.0); Immature Granulocyte Absolute 0.12 K/mm3 (0.00-0.031); Immature Granulocyte Percent A 1.5 % (0-0.5); Lymphocytes Absolute Auto 1.94 K/mm3 (0.9-3.2); Lymphocytes Percent Auto 23.6 % (18.3-44.2); Mean Corpuscular Hemoglobin 30.6 pg (26-34); Mean Corpuscular Volume 89.9 fl (80-100); Monocytes Absolute Auto 0.7 K/mm3 (0.1-0.6); Monocytes Percent Auto 8.9 % (2.6-8.5); Neutrophils Absolute Auto 5.3 K/mm3 (1.3-6.7); Neutrophils Percent Auto 64.9 % (45.5-73.1); Platelet Count Result 314 k/mm3 (150-375); Red Blood Count 3.37 M/mm3 (4.6-6.20); Red Cell Distribution Width 13.5 % (11.5-14.5); White Blood Count 8.2 K/mm3 (4.5-10.0)
[2019-07-29 06:52] LABS: Blood Urea Nitrogen 10 mg/dL (9-20); Calcium 7.9 mg/dL (8.4-10.2); Carbon Dioxide 28 mmol/L (22-30); Chloride 103 mmol/L (98-107); Estimated CRCL calculation 117 ml/min; Estimated Glomerular Filt Rate > 60; Glucose 108 mg/dL (75-110); Potassium 3.9 mmol/L (3.4-5.0); Sodium 135 mmol/L (137-145)
[2019-07-29 07:28] LABS: Rouleaux 1+ (NORMAL); Smudge Cells MANY
[2019-07-29 08:00] VITALS: PULSE 73; RESP 16; O2SAT 98
[2019-07-29] MEDS: PANTOPRAZOLE SOD SESQUIHYDRATE 20 MG TAB PO (09:01)
[2019-07-29] MEDS: SODIUM CHLORIDE 500 MG TABLET PO (09:01)
[2019-07-29] MEDS: SILVERGEL (ELTA) 45 ML 1 APPLIC TOPICAL (09:02)
--- NOTE | 2019-07-29 13:20 | WPDINFPN2 ---
Progress Note: A&P Assessment and Plan (1) Abscess: Onset Date: ~07/17/19 Code(s): L02.91 - Cutaneous abscess, unspecified Status: Acute Assessment and Plan: 1. Pasturella cat bite cellulitis and abscess, right index. Suspect osteomyelitis of the distal phalanx and arthritis of the DIP, due to same organism. Repeat culture no pathogens. 2. Hyperglycemia, no Hx DM REC Amp Sulb # / days, POD # 08/16. PICC in place, ok discharge once home IV arranged, through 08/17/19. Labs twice weekly cbc bmp crp. See me in office 1-2 weeks. Subjective Date/time seen: 07/29/19 13:20 Interval history: some pain proximal medial arm, also axilla. Finger pain under control with analgesics Exam Narrative: Exam Narrative: afebrile since last visit Const: General: no acute distress Eyes: General: appearance normal, both eyes and all related structures Resp: Effort & Inspection: normal respiratory effort Auscultation: clear to auscultation bilaterally Cardio: Rate: regular rate Rhythm: regular rhythm Heart sounds: no murmurs GI: Inspection: non-distended GI Palp: Yes Soft to palpation and No Tenderness to palpation present (GI) Skin: General skin exam: normal color and no rashes or lesions noted Other: erythema forearm is fading since last exam. Axilla tender mildly, no discrete nodes Extrem: Other: finger dressing dry and intact Objective Data Vital Signs Vital Signs: Vital Signs - 24 hr 07/28/19 14:00 07/28/19 20:00 07/28/19 21:35 Temperature 36.8 C 37.0 C Pulse Rate 64 64 80 Respiratory Rate 16 16 16 Blood Pressure 113/52 L 130/57 L Pulse Oximetry 96 96 98 07/29/19 05:50 07/29/19 08:00 Temperature 35.9 C L Pulse Rate 73 73 Respiratory Rate 16 16 Blood Pressure 104/54 L Pulse Oximetry 98 98 Intake/Output Intake/Output: Intake & Output 07/26/19 07/27/19 07/28/19 07/29/19 23:59 23:59 23:59 23:59 Intake Total 1970 2800 2050 920 Output Total 925 1650 1600 400 Balance 1045 1150 450 520 Meds/Results Medications: Active Medications Generic Name Dose Route Start Last Admin Trade Name Freq PRN Reason Stop Dose Admin Acetaminophen 650 mg 07/22/19 05:01 07/22/19 22:08 Tylenol Tablet PO 650 mg Q4H PRN Administration Fever > 100.0 Hydrocodone Bitart/Acetaminophen 1 tab 07/20/19 22:02 07/29/19 06:22 [place] 5-325 Mg PO 1 tab Q4H PRN Administration Pain Rated 4-6 Ampicillin Sodium/Sulbactam Sodium 3 gm in 100 mls @ 200 mls/hr 07/25/19 18:00 07/29/19 07:00 Unasyn 3 Gm/Ns 100 Ml IVPB Infused Q6H MYRA Infusion Morphine Sulfate 2 mg 07/25/19 21:47 07/26/19 02:31 Morphine Sulfate Inj IV PUSH 2 mg Q4H PRN Administration Pain Rated 7-10 Pantoprazole Sodium 20 mg 07/23/19 09:00 07/29/19 09:01 Protonix PO 20 mg QAM MYRA Administration Silver Nitrate 1 applic 07/28/19 09:00 07/29/19 09:02 Silvergel TOPICAL 1 applic DAILY MYRA Administration Sodium Chloride 500 mg 07/24/19 09:00 07/29/19 09:01 Sodium Chloride PO 500 mg QAM MYRA Administration Wound Care/Dressing Products 1 patch 07/28/19 09:00 07/29/19 09:02 Mepilex Transfer Drsg 6x8 TOPICAL 1 patch QAM MYRA Administration Radiology Results: ITS Impressions Chest X-Ray 07/23/19 07:59 IMPRESSION: No active cardiopulmonary disease Finger X-Ray 07/25/19 17:05 IMPRESSION: 1. Prominent diffuse soft tissue swelling about the right second digit with no findings to suggest osteomyelitis. 2. Mild to moderate polyarticular osteoarthritis. Labs Labs: Laboratory Results - last 24 hr 07/29/19 07/29/19 06:18 06:18 WBC 8.2 RBC 3.37 L Hgb 10.3 L Hct 30.3 L MCV 89.9 MCH 30.6 MCHC 34.0 RDW 13.5 Plt Count 314 MPV 9.0 Immature Gran % (Auto) 1.5 H Neut % (Auto) 64.9 Lymph % (Auto) 23.6 [place] % (Auto) 8.9 H Eos % (Auto) 0.5 Baso % (Auto) 0.6 Lymph # (Auto) 1.94 [place] # (Auto) 0.7 H
--- NOTE | 2019-07-29 13:47 | PM.DS ---
DS: Admitting Diagnosis Admitting Diagnosis Admitting Diagnosis: Bitten by cat, initial encounter DS: Discharge Diagnosis Discharge Diagnosis (1) Abscess: Onset Date: ~07/17/19 Code(s): L02.91 - Cutaneous abscess, unspecified Status: Acute Assessment and Plan: 07/28/19 16:23 Patient with a cat bite on right index finger distal phalanx , seen by plastic surgeon, treated with ampicillin, Has had fever. Which is now trending Finger only tender to pressure over nail fold. ROM improved. continued to monitor patient is seen by Dr. Dr. Piedra, recommended to continue current management and further recommendation to follow, patient was seen by Dr. Unger on 07/23 recommended to monitor 1 more day and poosibly discharge on 07/24 however patient complianed more pain, redness and swelling along the 2nd distal phalanx and DIP unable to flex and extend. also there is a red streak along right forearm, D/W Ute patient was taken OR and the wound was re-irrigated and removed remaining pus, and repeated blood culture, patient was seen by Dr. Piedra recommendation and not suspect different organism, recommended to continue present antibiotic regimen. Today patient was seen by the surgeon, red streak along the forearm is improving, recommended continue present management for 1 more day, patient is seen by Dr Piedra to day recommended IV Unasyn total of 11/05days, patient will have PICC line tomorros and possible discharge home, patient is clinically stable denies any fever or chills.. DS: Summary Hospital Course Reason for hospitalization: Cultures have returned from the wound which shows pasteurella multocida. And Bactrim. He is on Vicodin for discomfort. I would suggest infectious Disease be consulted. Patient appears to be on the right antibiotic. He still continues to have fevers. Do a chest x-ray as well just to rule out any other type of infection however his lungs sound clear. Patient has not had any cough. At this time is no reasonably that this could be covid 19. Will start with a chest x-ray for now. Wound care per Dr. Sykes. Hospital Course: Patient with a cat bite on right index finger distal phalanx , seen by plastic surgeon, treated with ampicillin, Has had fever. Which is now trending Finger only tender to pressure over nail fold. ROM improved. continued to monitor patient is seen by Dr. Dr. Piedra, recommended to continue current management and further recommendation to follow, patient was seen by Dr. Unger on 07/23 recommended to monitor 1 more day and poosibly discharge on 07/24 however patient complianed more pain, redness and swelling along the 2nd distal phalanx and DIP unable to flex and extend. also there is a red streak along right forearm, D/W Ute patient was taken OR and the wound was re-irrigated and removed remaining pus, and repeated blood culture, patient was seen by Dr. Piedra recommendation and not suspect different organism, recommended to continue present antibiotic regimen. Today patient was seen by the surgeon, red streak along the forearm is improving, recommended continue present management for 1 more day, patient is seen by Dr Piedra to day recommended IV Unasyn total of 11/05days, patient will have PICC line tomorros and possible discharge home, patient is clinically stable denies any fever or chills.. today patient has PICC line in place he is clinically stable will discharge home today. Status at Discharge Functional status at discharge: independent ambulation Overall status at discharge: patient is back to baseline Time Spent with Patient Time attestation: Total time spent providing and/or coordinating discharge services: Patient was seen and examined at the time of the discharge Condition at discharge is stable Code status: Full code. Time spent preparing discharge summary, discharge medications, discussing discharge planning with case fitter and patient is 35 minutes. Time spent:
== END 2019-07-29 15:03 | disposition home or self-care (01) | DRG 580 ==
LOC: ANHED 22:16 → ANH2MED 22:22
PROVIDERS: Family Medicine; Nurse Practitioner; Physician Assistant; Admitting Provider Plastic Surgery; Emergency Provider General Practice; PCP Internal Medicine; Visit Provider Plastic Surgery
PROC: 0H9QXZZ Drainage of Finger Nail, External Approach (ICD-10-PCS; principal; 2019-07-21 13:00)
PROC: 0R9W0ZZ Drainage of Right Finger Phalangeal Joint, Open Approach (ICD-10-PCS; principal; 2019-07-23 14:00)
PROC: 0PBT0ZZ Excision of Right Finger Phalanx, Open Approach (ICD-10-PCS; principal; 2019-07-25 15:15)
DX: L03.011 Cellulitis of right finger (principal); A28.0 Pasteurellosis; W55.01XA Bitten by cat, initial encounter; T49.0X1A Poisoning by local antifungal, anti-infective and anti-inflammatory drugs, accidental (unintentional), initial encounter; Z87.891 Personal history of nicotine dependence
CPT/HCPCS: 36415; 36569; 71046; 73140; 80048; 80053; 83605; 83735; 84439; 84443; 84480; 85025; 85652; 86140; 87040; 87070; 87077; 87205; 90471; 90715; 96365; 96366; 99285; A9270; C1751; J0131; J0295; J0743; J2270; J7060

== ENCOUNTER 2019-09-02 07:59 | Outpatient (RCR) | payer BC, SELFPAY ==
[2019-08-06 08:30] VITALS: BMI 31.0
== END 2019-10-26 07:32 | disposition home or self-care (01) ==
LOC: ANHWOC 07:59
PROVIDERS: PCP Internal Medicine; Visit Provider Plastic Surgery
DX: S61.252D Open bite of right middle finger without damage to nail, subsequent encounter (principal); W55.01XD Bitten by cat, subsequent encounter
CPT/HCPCS: 99212; 99213; A9270; G0463

== ENCOUNTER 2019-09-07 00:10 | Outpatient (CLI) | payer BC, SELFPAY ==
[2019-09-07 18:54] LABS: SARS-CoV-2 RNA PCR Negative
== END 2019-09-07 00:11 | disposition home or self-care (01) ==
LOC: ANHCOVIDDT 00:10
PROVIDERS: PCP Internal Medicine; Visit Provider Plastic Surgery
DX: Z01.812 Encounter for preprocedural laboratory examination (principal); Z11.59 Encounter for screening for other viral diseases
CPT/HCPCS: 87635; C9803; U0003

== ENCOUNTER 2019-09-09 01:59 | Day surgery (SDC) | payer BC, SELFPAY ==
[2019-09-02 17:31] VITALS: BMI 29.2
--- NOTE | 2019-09-07 12:18 | HP_ITS ---
DATE OF SERVICE: 09/09/2019 PREOPERATIVE DIAGNOSIS: History of gangrenous cat bite right index finger with exposed bone and tendon. This occurred for four days before this gentleman was admitted to the hospital. HISTORY OF PRESENT ILLNESS: He is a 58-year-old man with a long history of tobacco smoking, having stopped over a year prior. He required 3 trips to the OR for debridement of this gangrenous bite and is left with a healing wound, but with exposed dorsal base of the distal phalanx and exposed terminal tendon. He is being brought today for application of dermal matrix, hoping to promote granulation over these latter 2 structures. ALLERGIES: HE LISTS NO ALLERGIES TO MEDICATION. PRIOR SURGERY: Include an appendectomy in 1963. He takes no medications on a regular basis. He states that he has no chronic health conditions. He does not smoke any longer. FAMILY HISTORY: Noncontributory. SOCIAL HISTORY: He lives in [place]. He works for [employer]. He does not list a spouse. PHYSICAL EXAMINATION: GENERAL: He is an agreeable pleasant adult male. He is in no distress at this time. HEENT: Unremarkable. CHEST: Clear to auscultation. HEART: Regular rate and rhythm. ABDOMEN: Soft, nontender. EXTREMITIES: Normal with the exception of the involved digit. This is the right index finger where he has an open wound of the dorsum. The wound has been lightly cared for by the wound nurse at [facility]. It is measured at 3.3 x 3.5 cm. Healthy tissue as listed is 10% and slough at 90%. They have been doing manual debridement there. It was lately thought that he was developing some yeast, colonization, and an antifungal/steroid cream was added to his care there and I think that accounts for some of the white slough. There is no erythema. There is no foul drainage. There is essentially no black necrotic tissue. The pad of the finger appears normal. The dorsal joint area is the site of most involvement and will require today's application of Integra dermal matrix. ASSESSMENT: Open wound with exposed bone and tendon, right index finger. PLAN: Application of Integra under local anesthetic. D I MT: Daljit
[2019-09-09] VITALS (7 sets, daily range): BP systolic 134–165; BP diastolic 68–80; PULSE 64–76; RESP 15–18; TEMP 36.6; O2SAT 91–98
--- NOTE | 2019-09-09 07:09 | WPDHPUPDATE1 ---
History and Physical Update Update Date/Time: 09/09/19 07:09 History and Physical has been reviewed, including an updated exam of the patient. There are NO changes in the patient's condition. Risks, benefits, and alternatives have been discussed and questions answered. Patient agrees to proceed with procedure.
[2019-09-09] MEDS: LIDO 1%/EPINEPHRINE 1:100,000 20 ML VIAL 7 ML INFILTRATE (09:21)
--- NOTE | 2019-09-09 10:21 | SUR.OPER ---
EBL:5cc
--- NOTE | 2019-09-09 10:51 | PM.OP ---
Procedure Note - Brief Procedure Note - Brief Date of procedure: 09/09/19 Pre-op diagnosis: Status Post Cat Bite With Slow Healing Post-op diagnosis: same Procedure performed: Debridement of bone and tendon material form wound of right dorsal index finger and application of Integra Primax dermal substitute, 2 sq cm. Anesthesia: local Surgeon: Saud Sykes MD Estimated blood loss (mL): 2 Tourniquet time (min): 0 Drains: No Packing: No Pathology: none sent Complications: No immediate complications Condition: stable Disposition: same day
--- NOTE | 2019-09-09 10:57 | PM.PROC ---
Procedure Note - Detailed Date of procedure: 09/09/19 Pre-op diagnosis: Status Post Cat Bite With Slow Healing Post-op diagnosis: same Procedure performed: Debridement of bone and tendon material 1 sq cm and application of Integra Primatrix bilayer graft 2 sq cm right dorsal index finger Description of procedure: The patient's appropriate digit was marked in the holding area. He was taken to the operating room. He was placed supine on the operating table and the hand was on the hand board. The extremity was prepped and draped in usual fashion. The digit was anesthetized with 1% lidocaine with epinephrine. The digit was examined. There was exposed dorsal base of the distal phalanx in the form of the spicule and there is a broad area of exposed terminal tendon. There is an opening into the distal interphalangeal joint next to the tendon. There is an non epithelialized smaller portion of the wound on the radial aspect of the distal interphalangeal joint. Flexion and extension are intact. The spicule of bone was removed with a rongeur. The dorsal aspect of the more proximal terminal tendon was sharply debrided of yellow mushy nonviable tissue. There are islands of granulation already coming through adjacent to that specific area. The wound margins were sharply debrided with a 15 blade to generate bleeding from all aspects. The site was copiously irrigated with saline. Specifically we irrigated the joint. There is no sign of cellulitis today. The primatrix graft was opened and placed in saline. One side of this seemed to reflect light more than the other. That same side seemed to absorb a drop of blood more slowly than the other. Hence the other duller, more absorbent side was placed down on the wound bed. A small portion of that was cut off and placed on the wound to the radial side of the finger. Vaseline gauze was wrapped around these 2 small pieces. A moist 4 x 4 gauze was placed over that a 2nd layer of Vaseline gauze was applied followed by 2 in [place] and [place]. No antibiotics were used on this case. Patient has instructions in wound care and follow-up. A prescription for hydrocodone [id number] [id number]. was sent in to his pharmacy. Surgeon: Saud Sykes MD
== END 2019-09-09 11:30 | disposition home or self-care (01) ==
PROVIDERS: PCP Internal Medicine; Visit Provider Plastic Surgery
PROC: (CPT 11044; principal; 2019-09-09 09:30)
DX: S61.250A Open bite of right index finger without damage to nail, initial encounter (principal); W55.01XA Bitten by cat, initial encounter
CPT/HCPCS: 11044; 15271; A9270; Q4110

== ENCOUNTER → 2019-10-26 13:20 | Outpatient (CLI) | payer BC, SELFPAY ==
--- NOTE | ~2019-10-26 | XR_ITS ---
EXAMINATION: XR finger 2nd RT min 2V DATE: 10/26/2019 14:04 INDICATION: Osteomyelitis at the right hand. TECHNIQUE: Dorsal palmar, lateral and 2 oblique views of the right second digit were obtained COMPARISON: None FINDINGS: [place]-neck deformity to the right second digit with mild hyperextension at the proximal interphalangea l joint and increased flexion at the distal interphalangeal joint. There appears to be increased join t space narrowing at the second distal interphalangeal joint however assessment is limited by poor pr ofiling of the joint space on each of the provided images. An osteophyte previously seen at the dorsa l base of the distal phalanx is no longer visualized which could be related to osteomyelitis however correlation with operative note from 09/09/2019 suggests this may rather have been debrided. No other e vident osteolysis to suggest osteomyelitis. Additional polyarticular osteoarthritis, moderate severit y at the third metacarpophalangeal joint and mild at the triscaphe joint, second metacarpophalangeal joint and remaining interphalangeal joints and the second and third digits. Prior soft tissue swellin g at the second digit has resolved with relative thinning of the soft tissues overlying the head of t he second middle phalanx. IMPRESSION: 1. Loss of a dorsal osteophyte at the base of the right second distal phalanx which per prior operati ve note has likely been debrided. No other evident osteolysis to suggest osteomyelitis. Reviewed, dictated and finalized at location A. IMPRESSION: 1. Loss of a dorsal osteophyte at the base of the right second distal phalanx w hich per prior operative note has likely been debrided. No other evident osteol ysis to suggest osteomyelitis.
== END ==
PROVIDERS: PCP Internal Medicine; Visit Provider Plastic Surgery
DX: M86.141 Other acute osteomyelitis, right hand (principal)
CPT/HCPCS: 73140

== ENCOUNTER 2020-11-14 11:40 | Emergency (ER) | payer BC, SELFPAY ==
--- NOTE | ~2020-11-14 | XR_ITS ---
EXAMINATION: [id number], XR thoracic spine 2V DATE: 11/14/2020 13:45 INDICATION: Left rib pain and back pain post fall TECHNIQUE: 1. PA view of the chest and 3 views of the left ribs were obtained. 2. AP, lateral and lateral swimmer's views of the thoracic spine were obtained. COMPARISON: Chest radiograph dated 07/23/2019 FINDINGS: Chest and left ribs: No rib fractures identified. Chronic mild linear discoid atelectasis/scarring at the right middle lob e with unchanged mild focal pleural thickening at the lateral right midlung zone. Lungs are otherwise clear with no airspace opacities, pulmonary edema, pleural effusion or pneumothorax. Cardiomediastin al silhouette is normal. Thoracic spine: Alignment is normal. Unchanged minimal anterior wedging of T7. Remaining vertebral body heights are n ormal. Mild to moderate disc height loss with mild degenerative endplate changes at several levels in the thoracic spine most prominent at T8-T9 and T9-T10. IMPRESSION: 1. No left rib fracture or acute cardiopulmonary disease. 2. Mild to moderate thoracic spondylosis with no evident acute osseous abnormality. Reviewed, dictated and finalized at location A. IMPRESSION: 1. No left rib fracture or acute cardiopulmonary disease. 2. Mild to moderate thoracic spondylosis with no evident acute osseous abnormal ity.
[2020-11-14 11:49] VITALS: BP 147/62; PULSE 80; RESP 16; TEMP 36.6; O2SAT 97
--- NOTE | 2020-11-14 14:21 | ED.GENADULT ---
HPI - General Adult General Chief complaint: Fall Stated complaint: FALL Time Seen by Provider: 11/14/20 13:03 Source: patient History of Present Illness HPI narrative: Patient is a 59 y/o male complaining of a fall. He states that he was getting sometime from a pickup and tripped over a bumper and fell on his back. He states that he has some left back pain and left chest wall pain. He rates his pain as 1/10. His pain is aching and worse with movement. He did strike his head, but did not lose consciousness. He has no neck pain, back pain, chest pain or abdominal pain. Related Data Allergies Allergy/AdvReac Type Severity Reaction Status Date / Time No Known Allergies Allergy Verified 11/14/20 12:59 Review of Systems Constitutional: Constitutional: Denies chills, Denies fever(s), Denies headache(s) and Denies weakness Eyes: Eyes: Denies blurry vision ENT: Denies headache(s) and Denies neck pain Cardiovascular: Cardiovascular: Denies chest pain and Denies dyspnea Comments: left chest wall pain Respiratory: Respiratory: Denies cough and Denies dyspnea Gastrointestinal: Gastrointestinal: Denies abdominal pain, Denies diarrhea, Denies nausea and Denies vomiting Genitourinary: Genitourinary: Denies hematuria and Denies dysuria Musculoskeletal: Musculoskeletal: Reports back pain and Denies neck pain Neurologic: Denies headache(s) and Denies weakness PMFSH Past Medical History Medical History (Updated 11/15/20 @ 16:23 by Karolina Clark MD) No active medical problems Surgical History Surgical History History of appendectomy Status post LASIK surgery of both eyes Family History Family History Father Esophageal cancer Mother Postoperative Father Patient's father is Family history of malignant neoplasm Family history of malignant neoplasm of esophagus Sibling Patient's sister is in good health Patient's sister is Family history of malignant neoplasm of brain Family history of malignant neoplasm of breast in first degree relative Social History Social History Social History: The patient is lives with his . 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 He was driving up until the point that this occurred. He has 1 daughter and 1 son. The son is the nurse. The patient desires to be a full code. He uses smoked in the past but not recently and he is a social drinker. Smoking packs per day: 1 Smoking cigarettes per day: 20.0 Years smoked: 30 Smoking pack-years: 30.00 Smoking status: Former smoker Tobacco type: cigarettes Second hand tobacco smoke exposure: No Smoking end date: 04/21/17 Alcohol intake: never Substance use: never Substance use type: does not use Gender identity (if verbalized by the patient): Male Spiritual care concerns: No Exam Const: General: no acute distress and well developed Orientation/consciousness: oriented to person, oriented to place, oriented to time and patient oriented x3 HENMT: Head: normocephalic Ears: external ears normal General nose exam: Normal external nose present Eyes: General: appearance normal, both eyes and all related structures Conjunctivae: conjunctivae normal Neck: Neck: normal visual inspection and full ROM Chest: Chest palpation & inspection: normal inspection of the chest and no tenderness Resp: Effort & Inspection: normal respiratory effort Auscultation: clear to auscultation bilaterally Cardio: Rate: regular rate Rhythm: regular rhythm GI: GI Palp: No abdominal tenderness and Yes Soft to palpation Skin: General skin exam: normal color and turgor normal Neuro: General: oriented to person, oriented to place, oriented to time and patient oriented x3 Cognition (Neuro): normal cognition Extrem: General:
== END 2020-11-14 15:06 | disposition left against medical advice (07) ==
LOC: ANHED 13:08
PROVIDERS: Emergency Provider Emergency Medicine; PCP Internal Medicine
DX: R07.89 Other chest pain (principal); V56.4XXA Person boarding or alighting a pick-up truck or van injured in collision with other nonmotor vehicle, initial encounter; Z87.891 Personal history of nicotine dependence
CPT/HCPCS: 71101; 72070; 99284

== ENCOUNTER 2020-11-15 13:46 | Outpatient (CLI) | payer BC, SELFPAY ==
--- NOTE | ~2020-11-15 | CT_ITS ---
EXAMINATION: CT brain wo con DATE: 11/15/2020 14:06 INDICATION: Left posterior head injury. TECHNIQUE: Computed tomography (CT) of the head was performed without intravenous contrast. The mA wa s adjusted according to patient size. Iterative reconstruction technique was employed. The dose-lengt h product was 605.33 mGy-cm. COMPARISON: None FINDINGS: There is no intracranial hemorrhage, acute infarction, or abnormal intracranial mass lesion . There are scattered areas of low attenuation in the cerebral white matter. The ventricles are bishnu l in size. There are likely changes of ocular lens replacement surgeries. There is mild mucosal thick ening in the paranasal sinuses. The mastoid air cells are normal. IMPRESSION: 1. Mild nonspecific cerebral white matter disease, which likely represents chronic small vessel ische gilmar disease. Reviewed, dictated and finalized at location A. IMPRESSION: 1. 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
== END 2020-11-15 13:47 | disposition home or self-care (01) ==
PROVIDERS: PCP Internal Medicine; Visit Provider Internal Medicine
DX: S09.90XA Unspecified injury of head, initial encounter (principal); R90.82 White matter disease, unspecified
CPT/HCPCS: 70450

== ENCOUNTER → 2021-03-14 08:47 | Outpatient (CLI) | payer BC, SELFPAY ==
--- NOTE | ~2021-03-14 | US_ITS ---
EXAMINATION: US abdomen complete DATE: 03/14/2021 09:14 INDICATION: Epigastric abdominal pain. TECHNIQUE: Multiple grayscale and Doppler ultrasound images of the abdomen were obtained. COMPARISON: None FINDINGS: The visualized portions of the head of the pancreas are normal. The inferior vena cava and abdominal aorta are normal. There is diffuse hepatic steatosis. There is normal flow in main portal v ein. The gallbladder is contracted and contains gallstones. There is no sonographic Hardy sign. The common duct is normal and measures 5 mm. The kidneys are normal in size. The spleen is normal in size . IMPRESSION: 1. Cholelithiasis. No evidence of acute cholecystitis. 2. Diffuse hepatic steatosis. Reviewed, dictated and finalized at location A. 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
== END ==
PROVIDERS: PCP Physician Assistant; Visit Provider Physician Assistant
DX: R10.13 Epigastric pain (principal); K80.20 Calculus of gallbladder without cholecystitis without obstruction; K76.0 Fatty (change of) liver, not elsewhere classified
CPT/HCPCS: 76700

== ENCOUNTER 2021-05-09 15:31 | Outpatient (CLI) | payer BC, SELFPAY ==
--- NOTE | 2021-05-09 15:45 | ECG_ITS ---
Measurements Intervals [place] Rate: 75 P: 70 OH: 159 QRS: 33 QRSD: 118 T: 47 QT: 385 QTc: 431 Interpretive Statements SINUS RHYTHM WITH OCCASIONAL VENTRICULAR PREMATURE COMPLEXES POSSIBLE LATERAL MYOCARDIAL INFARCTION [35 ms Q WAVE IN I/aVL/V5/V6], PROBABLY OLD POSSIBLE INFERIOR MYOCARDIAL INFARCTION [35 ms Q WAVE IN II/aVF], PROBABLY OLD NONSPECIFIC ST ABNORMALITY ABNORMAL EKG NO PREVIOUS ECG AVAILABLE FOR COMPARISON Electronically Signed On 05-09-2021 15:56:46 SHREDDING SPECIALIST by Kevin Bradley M.D.
[2021-05-09 16:03] LABS: Alanine Aminotransferase 23 U/L (4-50); Albumin Level 4.6 g/dL (3.5-5.1); Alkaline Phosphatase 70 U/L (38-126); Amylase 67 U/L (30-110); Aspartate Amino Transferase 22 U/L (17-59); Bilirubin,Total 0.3 mg/dL (0.2-1.3); Lipase 101 U/L (23-300)
== END 2021-05-09 15:32 | disposition home or self-care (01) ==
PROVIDERS: PCP Physician Assistant; Visit Provider Surgery
DX: K80.20 Calculus of gallbladder without cholecystitis without obstruction (principal); Z01.818 Encounter for other preprocedural examination; R94.31 Abnormal electrocardiogram [ECG] [EKG]
CPT/HCPCS: 36415; 80076; 82150; 83690; 86850; 86900; 86901; 93005

== ENCOUNTER 2021-05-11 01:22 | Day surgery (SDC) | payer BC, SELFPAY ==
[2021-05-05 15:00] VITALS: BMI 29.8
--- NOTE | 2021-05-05 15:06 | PC.NURSE ---
Report to the Outpatient Waiting Room, entrance under the green pavilion located off [facility], at time 10:00 on date 05/11/21. OR Time: 12:00. - You and your visitor will be asked a series of questions to screen for COVID 19 for your protection. - A mask is required within the hospital. One visitor will be allowed to accompany the patient into the hospital. Patients visitor will be instructed to remain with patient at all times or leave the building. We will allow the visitor to come back to the postoperative area when patient is ready. Preoperative COVID Testing Requirements: No COVID Test needed if: (proof is required; if not received patient will have Rapid Test prior to entry) - Patient has received COVID Vaccine at least 14 days prior to procedure date or - Patient has positive COVID test result within last 90 days of surgery date. COVID Test needed if above criteria is not met Patients may have clear liquids (water, carbonated beverages, clear teas, apple juice) until 3 hours prior to surgery (9:00) with a maximum of 20 ounces. - No food from midnight until time of surgery Take the following medications with a SIP of water the morning of surgery: NONE Medications to discontinue per physician: N/A Date to take last dose: N/A Please no make-up, nail north korean, hairspray, perfume, deodorant, or body powder the day of surgery. No jewelry (including any body piercings) or valuables the day of surgery, leave them at home. Please take a shower or bath the night before, or the morning of, surgery with an antibacterial soap. Wear comfortable, loose fitting clothing. HIBICLENS SHOWER - Jewelry must be removed prior to entering the operating room. Rings and piercings that are not removed may be cut off. - The hospital will not accept responsibility for valuables. - Please leave all valuables, including medications, at home the day of surgery. If you are going home after surgery, a licensed local driver must drive you home. - NO public transportation without another adult. - We recommend that an adult stay with you for 24 hours following discharge. - We also recommend that you do not drive, make important decision, drink alcoholic beverages, or take any drugs that were not prescribed by your health care provider for at least 24 hours after your discharge time. Follow any additional instructions given to you from your surgeon. Telephone instructions given to GARTH PRICE and asked if any additional questions and then verbalized understanding. Patient advised to call surgeon office or pre surgery nurse liaison [phone] if any additional questions.
[2021-05-11] VITALS (7 sets, daily range): BP systolic 117–157; BP diastolic 52–69; PULSE 59–88; RESP 10–24; TEMP 36.2–36.4; O2SAT 100
[2021-05-11] MEDS: ACETAMINOPHEN 500 MG TABLET 1000 MG PO (11:07)
[2021-05-11] MEDS: LACTATED RINGERS 1,000 ML 30 ML IV CONT ×2 (11:15→13:20)
[2021-05-11] MEDS: KETOROLAC 15 MG/ML VIAL (*BKC) IV PUSH (11:18)
--- NOTE | 2021-05-11 11:50 | WPDANESEPPF ---
Anes - Initial Pre Proc Eval Procedure: Operation Date: 05/11/21 12:00 Proposed Procedures p Laparoscopic Cholecystectomy - Jacy Roche MD Date/Time: 05/11/21 11:50 Surgeon: Jacy Roche MD Pre Op Diagnosis: chronic cholecystitis with stones Patient Data Age: 60 Gender: M Height: 1.83 m Weight: 103.5 kg Last Vital Signs Temp 36.2 C L 05/11/21 10:28 Pulse 62 05/11/21 10:28 Resp 20 05/11/21 10:28 BP 157/69 H 05/11/21 10:28 Pulse Ox 100 05/11/21 10:28 Allergies Allergy/AdvReac Type Severity Reaction Status Date / Time No Known Allergies Allergy Verified 05/11/21 10:58 Home Medications Medication Instructions Recorded Confirmed Type sildenafil 100 mg tablet 100 mg PO DAILY PRN #9 tablet 12/09/19 05/05/21 Rx omeprazole 20 mg capsule,delayed 20 mg PO DAILY #90 cap 04/28/21 05/11/21 Rx release Patient hx anesthesia problems: none Family hx anesthesia problems: none Results Review: All pre-operative results and documents have been reviewed as part of the pre-operative evaluation. [facility] Past Medical History Medical History No active medical problems Surgical History Surgical History History of appendectomy Status post LASIK surgery of both eyes Family History Family History Father Esophageal cancer Mother Postoperative Father Patient's father is Family history of malignant neoplasm Family history of malignant neoplasm of esophagus Sibling Patient's sister is in good health Patient's sister is Family history of malignant neoplasm of brain Family history of malignant neoplasm of breast in first degree relative Social History Social History Social History: The patient is lives with his . 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 He was driving up until the point that this occurred. He has 1 daughter and 1 son. The son is the nurse. The patient desires to be a full code. He uses smoked in the past but not recently and he is a social drinker. Smoking packs per day: 1 Smoking cigarettes per day: 20.0 Years smoked: 30 Smoking pack-years: 30.00 Smoking status: Former smoker Tobacco type: cigarettes Second hand tobacco smoke exposure: No Smoking end date: 04/21/17 Alcohol intake: never Substance use: never Substance use type: does not use Living arrangements: with family Gender identity (if verbalized by the patient): Male Spiritual care concerns: No Anes - Eval Final PreProcedure Day of Procedure 05/11/21 11:50 Patient weight: obese Heart: regular rate and rhythm Lungs: clear to auscultation Airway: Mallampati scale class II Neurological: alert and oriented Last oral intake: >/= 8 hours ASA classification: II Emergent: no Anesthetic plan: proceed Anesthesia type and monitoring: general ETT and standard monitoring Results Review: All pre-operative results and documents have been reviewed as part of the pre-operative evaluation. Informed Consent: The patient's anesthetic plan and its attendant risks and benefits were discussed with the patient/family/POA. Questions were solicited and answers provided to the satisfaction of the patient/family/POA.
--- NOTE | 2021-05-11 12:07 | PM.IMHP ---
H&P: HPI History of Present Illness Date/Time: 05/11/21 12:07 Sridhar is a 60 y/o male who presents to the office today at the request of CARLOZ Lim with complaints of epigastric abdominal pain. He states this pain started around mid-January 2021. He states the pain is episodic. He also states the pain radiates to the RUQ. He states there are no certain foods that trigger symptoms. He is not having any problems with BM's. Abdominal US on 03/14/21 revealed cholelithiasis. Chief Complaint: cholelithiasis Review of Systems Review of Systems: All systems reviewed & are unremarkable except as noted in HPI and below PMFSH Past Medical History Medical History No active medical problems Surgical History Surgical History History of appendectomy Status post LASIK surgery of both eyes Family History Family History Father Esophageal cancer Mother Postoperative Father Patient's father is Family history of malignant neoplasm Family history of malignant neoplasm of esophagus Sibling Patient's sister is in good health Patient's sister is Family history of malignant neoplasm of brain Family history of malignant neoplasm of breast in first degree relative Social History Social History Social History: The patient is lives with his . 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 He has 1 daughter and 1 son. The son is the nurse. The patient desires to be a full code. He uses smoked in the past but not recently and he is a social drinker. Smoking packs per day: 1 Smoking cigarettes per day: 20.0 Years smoked: 30 Smoking pack-years: 30.00 Smoking status: Former smoker Tobacco type: cigarettes Second hand tobacco smoke exposure: No Smoking end date: 04/21/17 Alcohol intake: never Substance use: never Substance use type: does not use Living arrangements: with family Gender identity (if verbalized by the patient): Male Spiritual care concerns: No Meds Home Medications and Allergies Home Medications Medication Instructions Recorded Confirmed Type sildenafil 100 mg tablet 100 mg PO DAILY PRN #9 tablet 09/30/20 02/25/22 Rx omeprazole 20 mg capsule,delayed 20 mg PO DAILY #90 cap 04/28/21 05/11/21 Rx release Allergies Allergy/AdvReac Type Severity Reaction Status Date / Time No Known Allergies Allergy Verified 05/11/21 10:58 Vital Signs Vital Signs - 24 hr 05/11/21 10:28 Temperature 36.2 C L Pulse Rate 62 Respiratory Rate 20 Blood Pressure 157/69 H Pulse Oximetry 100 Exam Const: General: cooperative, comfortable and no acute distress Nutritional Appearance: obese Orientation/consciousness: patient oriented x3 Limitations: no limitations Resp: Effort & Inspection: normal respiratory effort Auscultation: clear to auscultation bilaterally Cardio: Rate: regular rate Rhythm: regular rhythm GI: Inspection: normal to inspection and non-distended GI Palp: Yes Soft to palpation, No Tenderness to palpation present (GI), No Guarding due to palpation present (GI) and No Rigid due to palpation Assessment and Plan Assessment and plan (1) Cholelithiasis: Qualifiers: Cholelithiasis location: gallbladder Cholecystitis presence: with cholecystitis Cholecystitis acuity: chronic Biliary obstruction: without biliary obstruction Qualified Code(s): K80.10 - Calculus of gallbladder with chronic cholecystitis without obstruction Code(s): K80.20 - Calculus of gallbladder without cholecystitis without obstruction Status: Acute Assessment and Plan: will setup for laparoscopic cholecystectomy
--- NOTE | 2021-05-11 12:09 | WPDHPUPDATE1 ---
History and Physical Update Update Date/Time: 05/11/21 12:09 History and Physical has been reviewed, including an updated exam of the patient. There are NO changes in the patient's condition. Risks, benefits, and alternatives have been discussed and questions answered. Patient agrees to proceed with procedure.
--- NOTE | 2021-05-11 13:29 | P.OP_ITS ---
Procedure Note - Detailed Date of Procedure 05/11/21 Pre-op Diagnosis chronic cholecystitis with stones Post-op Diagnosis Same Procedure Performed Laparoscopic cholecystectomy Surgeon Jacy Roche MD Anesthesia General Indications 60-year-old male presenting with intermittent epigastric abdominal pain. Wo rkup, including imaging, significant for chronic cholecystitis, cholelithiasis. Findings Chronic cholecystitis with contraction, cholelithiasis Description of Procedure The patient was taken to the operating room placed in the supine position. After adequate induction of general anesthesia, the patient was prepped and draped in normal sterile fashion. A time-out was then performed to verify the patient's identity as well as the procedure being performed. I then made a 5 mm incision in the infraumbilical region. Through this, a Veress needle was placed into the peritoneal cavity and CO2 gas was then insufflated. After adequate pneumoperitoneum was achieved, the Veress needle was removed and a 5 mm optiview trocar was placed through this incision under direct visualization. I then placed the laparoscope through this trocar site and under direct visualization placed a further 12 mm subxiphoid port as well as 2 additional 5 mm ports in the right upper abdomen. The gallbladder was then identified and was noted to be moderately inflamed, contracted, and full of gallstones. I was able to place a grasper at the dome of the gallbladder and this was retracted anterior and cephalad up over the liver. A 2nd retractor was then placed at the infundibulum and retracted laterally, this allowed visualization of the triangle of Calot. There was noted to be some omental adhesions that were taken down with the Bovie cautery. I then was able to visualize the cystic duct in its entirety from its proximal insertion into the gallbladder, to its distal junction with the common hepatic/common bile duct junction. At this point, I carefully skeletonized the proximal cystic duct with the [place] dissector. I then clipped and transected the proximal cystic duct. Next I visualized the cystic artery. Again the artery was skeletonized, clipped, and transected. I then used the Bovie cautery to take down the peritoneal attachments of the gallbladder off the liver bed. This was somewhat difficult given the amount of inflammation in the posterior space. Once the gallbladder specimen was completely detached, an endo-pouch was placed through the 12 mm port site. I then placed the gallbladder specimen into the Endo pouch and removed the endo-pouch from the 12 mm port site. The specimen will now be sent to pathology for further review. I then copiously irrigated the right upper quadrant. Hemostasis was noted in the liver bed, the clips were noted to be in good position on both the cystic duct stump and the cystic artery stump. No other pathology was noted in the right upper quadrant. I then moved the laparoscope to the subxiphoid port. No iatrogenic injury or other pathology was noted in the lower abdomen. I then closed the 12 mm trocar site under direct visualization using the Wilfrid cone and 0 Vicryl suture. At this point, the abdomen was desufflated and all ports removed. All port sites were then closed with 4.O Monocryl subcuticular sutures. Dermabond was placed on each incision. The patient tolerated the procedure well, was extubated in the operating room postoperative and will be transferred to the recovery room in stable condition Estimated Blood Loss 5 Drains No Packing No Pathology Yes Complications No immediate complications Condition Stable Disposition PACU
--- NOTE | 2021-05-11 13:36 | SUR.PHASEI ---
REPORT GIVEN TO HIEN LOZANO
--- NOTE | 2021-05-11 13:41 | SUR.PHASEI ---
Simple mask removed at 1341.
== END 2021-05-11 15:02 | disposition home or self-care (01) ==
PROVIDERS: PCP Physician Assistant; Visit Provider Surgery
PROC: 0FT44ZZ Resection of Gallbladder, Percutaneous Endoscopic Approach (ICD-10-PCS; CPT 47562; principal; 2021-05-11 12:00)
DX: K80.10 Calculus of gallbladder with chronic cholecystitis without obstruction (principal); Z87.891 Personal history of nicotine dependence; E66.9 Obesity, unspecified; Z68.30 Body mass index [BMI] 30.0-30.9, adult
CPT/HCPCS: 47562; 36415; 80076; 82150; 83690; 86850; 86900; 86901; 88304; 93005; A9270; J1100; J1170; J1885; J2250; J2405; J2704; J3010; J7030; J7120

== ENCOUNTER 2024-10-12 10:16 | Outpatient (CLI) | payer MEDICARE, SELFPAY ==
[2024-10-12 11:17] LABS: Hematocrit 39.3 % (42.0-52.0); Hemoglobin 13.1 g/dL (14.0-18.0); Immature Granulocyte Percent A 0.3 % (0-0.5); Lymphocytes Absolute Auto 1.14 K/mm3 (0.9-3.2); Mean Corpuscular HGB Conc 33.3 g/dl (32-36); Mean Corpuscular Hemoglobin 30.5 pg (26-34); Mean Corpuscular Volume 91.4 fl (80-100); Nucleated Red Blood Cells Absolute Auto 0.000 K/mm3 (0.0-0.012); Nucleated Red Blood Cells Perc 0.0 % (0.0-0.2); Platelet Count Result 245 k/mm3 (150-375); Red Blood Count 4.30 M/mm3 (4.6-6.20); White Blood Count 5.9 K/mm3 (4.5-10.0)
[2024-10-12 11:26] LABS: Hemoglobin A1C 5.7 % (<5.7)
[2024-10-12 11:39] LABS: Alanine Aminotransferase 29 U/L (6-50); Albumin Level 4.3 g/dL (3.5-5.1); Alkaline Phosphatase 55 U/L (38-126); Anion Gap 6 mmol/L (4-12); Aspartate Amino Transferase 26 U/L (17-59); Bilirubin,Total 0.6 mg/dL (0.2-1.3); Blood Urea Nitrogen 13 mg/dL (9-20); Calcium 9.1 mg/dL (8.4-10.2); Carbon Dioxide 27 mmol/L (22-30); Chloride 105 mmol/L (98-107); Cholesterol 182 mg/dL (0-200); Estimated Glomerular Filt Rate > 60; Glucose 110 mg/dL (65-110); HDL Direct 38 mg/dL; Potassium 4.1 mmol/L (3.4-5.0); Sodium 138 mmol/L (137-145); Total Protein 7.3 g/dL (6.3-8.2); Triglycerides 139 mg/dL (<150)
[2024-10-12 11:41] LABS: Add Urine Microscopic? NO; Appearance Urine Clear (Clear); Glucose Urine UA Negative (Negative); Leukocyte Esterase Ur Negative LEU/UL (Negative); Nitrate Urine Negative (Negative); Specific Grav Ur 1.020 (1.001-1.035)
[2024-10-12 12:01] LABS: MALB Creatinine Ratio 4.8 mg/g (0-30)
[2024-10-12 12:14] LABS: Prostate Specific Antigen 4.7 ng/mL (< OR = 4.0)
== END 2024-10-12 10:17 | disposition home or self-care (01) ==
PROVIDERS: PCP Family Medicine; Visit Provider Family Medicine
DX: R73.01 Impaired fasting glucose (principal); Z87.898 Personal history of other specified conditions; Z12.5 Encounter for screening for malignant neoplasm of prostate; R10.13 Epigastric pain; E78.2 Mixed hyperlipidemia
CPT/HCPCS: 36415; 80048; 80061; 80076; 81003; 82043; 83036; 84153; 85025